=== PATIENT | male | born 1955 | race African-American/Black ===

== ENCOUNTER 2018-09-23 12:53 | Inpatient (IN) ==
[2018-09-23] MEDS ORDERED: ASPIRIN PR ONE (13:06)
[2018-09-23] MEDS ORDERED: ASPIRIN PO ONE (13:06)
[2018-09-23 13:35] LABS: ESTIMATED GFR > 60
[2018-09-23 13:40] LABS: AGAP 13; ALB/GLOB RATIO 1.3; ALBUMIN 3.5 g/dL (3.5-5.0); ALKALINE PHOSPHATASE 95 U/L (32-122); BUN 13 mg/dL (8-22); CALCIUM 8.4 mg/dL (8.8-10.2); CHLORIDE 87 mmol/L (98-107); CK PROFILE 185 U/L (24-204); COSMO 248; CREATININE 0.7 mg/dL (0.7-1.2); GLUCOSE 130 mg/dL (70-104); GOT 25 U/L (10-34); GPT 14 U/L (10-44); SODIUM 122 mmol/L (136-145); TCO2 22 mmol/L (25-35); TOTAL PROTEIN 6.2 g/dL (6.3-8.3)
[2018-09-23 13:46] LABS: BASO# 0.02 X1000 (0.0-0.2); BASO% 0.3 % (0.0-0.8); EOS# 0.03 X1000 (0.0-0.7); EOS% 0.4 % (0.0-10.0); HEMATOCRIT 18.3 % (42.0-52.0); HEMOGLOBIN 5.8 g/dL (14.0-18.0); LYMPH# 1.34 X1000 (1.2-3.4); LYMPH% 18.2 % (20.5-51.1); MCHC 31.7 g/dL (33-37); MCV 69.3 FL (81-99); MONO# 0.85 X1000 (0.11-0.59); MONO% 11.5 % (1.7-9.3); MPV 9.1 FL (7.4-10.4); NEUT# 5.13 X1000 (1.4-6.5); NEUT% 69.6 % (42.2-75.2); PLT 209 X1000 (130-400); RBC 2.64 XMIL (4.7-6.1); RDW 15.6 % (11.5-14.5); WBC 7.37 X1000 (4.8-10.8)
--- NOTE | 2018-09-23 13:47 | Diag Imaging Result Doc PS360 ---
EXAM: CHEST-2 VIEWS 09/23/2018 HISTORY: SOB TECHNIQUE: PA and lateral chest COMMENT: There are emphysematous changes in the upper lung zones and irregular opacity is present in the right apex partially obscured by the first rib and clavicle. The heart size and pulmonary vascularity are within normal limits. There is a granuloma in the right middle lobe. There are calcified subcarinal nodes. There is blunting of the left posterior costophrenic sulcus. This may be due to fluid or fibrosis. IMPRESSION: COPD. Questionable left pleural effusion. Opacity in the right apex which may be due to fibrosis. Comparison with previous studies is recommended. Electronically signed by Xander Marks 09/23/2018 1:45 PM
[2018-09-23 13:49] LABS: INR 1.17; PROTIME 15.1 Seconds (11.0-16.0)
[2018-09-23 13:50] LABS: PTT 27.9 Seconds (22.3-41.8)
--- NOTE | 2018-09-23 13:56 | EKG Report ---
Test Performed on : 09/23/2018 1:06:48 PM Test Reason : SOB Blood Pressure : / mmHG Vent. Rate : 099 BPM Atrial Rate : 099 BPM P-R Int : 104 ms QRS Dur : 112 ms QT Int : 342 ms P-R-T Axes : 073 065 063 degrees QTc Int : 438 ms Sinus rhythm. with short CO with premature atrial complexes. with aberrant conduction. Possible Left atrial enlargement Borderline ECG No previous ECGs available Unconfirmed Result
[2018-09-23] MEDS ORDERED: NS 1,000 ML IV ONE (14:18)
[2018-09-23] MEDS ORDERED: NS 500 ML IV ONE (14:19)
[2018-09-23] MEDS ORDERED: NEXIUM IV ONE (14:31)
[2018-09-23] MEDS ORDERED: SODIUM CHLORIDE 0.9% INJ ONE (14:31)
--- NOTE | 2018-09-23 14:33 | PROVIDER DOCUMENTATION ---
HPI-General Adult - General Chief Complaint: Shortness of Breath Stated Complaint: SOB Time Seen by Provider: 09/23/18 14:12 Source: patient - History of Present Illness -Gen Adult Nature of Presenting Problems: Pt. is 63 yom that presents with c/o SOB and leg cramps for three days. He reports his stool has been black. He denies any other complaints. He reports he is a smoker. Location of Pain/Injury: reports: lower extremity (bilateral). denies: none, head, face, mouth, neck, chest, upper extremity, hand(s), abdomen, back, pelvis, genitalia, feet, upper body, lower body, generalized, other Pain Radiation: reports: no radiation. denies: arm(s), back, buttocks, chest, epigastric, feet, groin, jaw, flank (L), legs (lower), LLQ, LUQ, neck, tia umbilical, flank (R), RLQ, RUQ, shoulder(s), scapula, scrotal, sternal notch, suprapubic, legs (upper), urethral, vaginal, other Quality of Pain: reports: cramping. denies: burning, indigestion, sharp, throbbing, tightness Severity: reports: mild. denies: moderate, severe Onset/Duration: reports: gradual, 3 days ago Timing: reports: still present. denies: improving, intermittent, getting worse Context/Activities at Onset: reports: none. denies: light activity, moderate activity, vigorous activity, recent emotional stress, recent physical stress, recent trauma history, possible bad food, cold exposure, eating, out of country travel, rest, sleep, sexual activity, other Modifying Factors: improves with: nothing Associated Symptoms: reports: muscle aches, shortness of breath. denies: denies symptoms, anxiety, arm pain, back/neck pain, chest pain, constipation, cough, diaphoresis, diarrhea, dizziness, EENT symptoms, fatigue, fever/chills, genitourinary problems, headaches, heartburn, joint pain, loss of appetite, malaise, sinus congestion/drainage, nausea, rash, seizure, sensory/motor loss, pain with inspiration, swelling/mass in abdomen, syncope, vomiting, weakness, trouble walking, other Similar Symptoms Previously?: Yes Recently seen or treated by another doctor?: No Review of Systems - Adult - REVIEW OF SYSTEMS - ADULT Constitutional: reports: no symptoms reported Eyes: reports: no symptoms reported Ears, Nose, Mouth & Throat: reports: no symptoms reported Cardiovascular: reports: no symptoms reported Respiratory: reports: see HPI, dyspnea on exertion, shortness of breath. denies: cough, hemoptysis, pleurisy Gastrointestinal: reports: see HPI, rectal bleeding. denies: hematemesis, constipation, frequent heartburn, vomiting Genitourinary: reports: no symptoms reported Musculoskeletal: reports: see HPI, frequent leg cramps. denies: bone pain, joint swelling, muscle aches, neck pain Integumentary: reports: no symptoms reported Neurological: reports: no symptoms reported Psychiatric: reports: no symptoms reported Past History - Adult - PAST MEDICAL HISTORY-ADULT Review of Records: reports: Old Records Reviewed, Nursing Assessment Review, Medications Reviewed, Social history reviewed & non-contributory. - IMMUNIZATION STATUS Childhood Immunizations: See Nurse Assessment Flu Vaccine: See Nurse Assessment - FAMILY HISTORY Family History: reviewed, not pertinent - SOCIAL HISTORY Smoking: cigarettes, greater than 1 pack/day Provider spent 3-5 mins advising pt. on dangers of tobacco.: Discussed manners to quit use, and f/u contacts for add'l counseling. Physical Exam-General - PHYSICAL EXAM-ADULT Initial Vital Signs Reviewed: Yes - CONSTITUTIONAL General Appearance: alert, mild distress, thin. negative: anxious, obtunded, c ombative - EYES Eyes: PERRL/EOMI, pink conjunctivae - HEAD, EARS, NOSE, MOUTH & THROAT HENMT: normocephalic/atraumatic, moist mucous membranes. negative: pharyngeal erythema, frontal tenderness, maxillary tenderness - NECK Neck: non-tender, supple, normal inspection - RESPIRATORY Respiratory: lungs clear, normal breath sounds. negative: rales, rhonchi, stridor - CARDIOVASCULAR Cardiovascular: regular rate, rhythm, no edema, tachycardia - GASTROINTESTINAL (ABDOMEN) Abdominal Exam: normal bowel sounds, non tender, soft. negative: rebound, tenderness, hernia, mass - LYMPHATIC Lymphatic: no adenopathy. negative: axilla node tender, cervical node tenderness - MUSCULOSKELETAL Back Exam: normal inspection, no CVA tenderness, no vertebral tenderness Extremity: normal range of motion, non-tender, normal inspection. negative: deformity, erythema, inflammation Peripheral Pulses: radial (R): 2+, radial (L): 2+ - SKIN Integumentary: normal color, normal turgor, warm/dry, pallor (Gums are pale). negative: cyanosis, erythema, swelling, warm - NEUROLOGIC Neurologic: grossly normal, no motor/sensory deficits - PSYCHIATRIC Psych/Mental Status: normal mood/affect, normal thought content, normal thought process, oriented x 3. negative: anxious, paranoid, tearful Progress - PLAN OF CARE/RESULTS Progress/Plan/Lab Results: Vital Signs - 8 hr 09/23/18 13:00 Temperature 97.8 F Pulse Rate 102 H Respiratory Rate 20 Blood Pressure 130/62 O2 Sat by Pulse Oximetry 98 Laboratory Results - last 24 hr 09/23/18 09/23/18 09/23/18 13:09 13:09 13:09 WBC 7.37 RBC 2.64 L Hgb 5.8 L* Hct 18.3 L MCV 69.3 L MCH 22.0 L MCHC 31.7 L RDW Std Deviation 15.6 H Plt Count 209 MPV 9.1 Immature Gran % (Auto) 0.0 Neut % (Auto) 69.6 Lymph % (Auto) 18.2 L [place] % (Auto) 11.5 H Eos % (Auto) 0.4 Baso % (Auto) 0.3 Immature Gran # (Auto) 0.00 Neut # (Auto) 5.13 Lymph # (Auto) 1.34 [place] # (Auto) 0.85 H Eos # (Auto) 0.03 Baso # (Auto) 0.02 PT INR PTT (Actin FS) Sodium 122 L Potassium 4.0 Chloride 87 L Carbon Dioxide 22 L Anion Gap 13 BUN 13 Creatinine 0.7 Estimated GFR/1.73 m2 > 60 BUN/Creatinine Ratio 19 Glucose 130 H Calculated Osmolality 248 Calcium 8.4 L Total Bilirubin 0.30 AST 25 ALT 14 Alkaline Phosphatase 95 Creatine Kinase 185 Troponin T Ixi-I-Epvxfttqmpz Pept 439 H Total Protein 6.2 L Albumin 3.5 Globulin 2.7 Albumin/Globulin Ratio 1.3 09/23/18 09/23/18 13:09 13:09 WBC RBC Hgb Hct MCV MCH MCHC RDW Std Deviation Plt Count MPV Immature Gran % (Auto) Neut % (Auto) Lymph % (Auto) [place] % (Auto) Eos % (Auto) Baso % (Auto) Immature Gran # (Auto) Neut # (Auto) Lymph # (Auto) [place] # (Auto) Eos # (Auto) Baso # (Auto) PT 15.1 INR 1.17 PTT (Actin FS) 27.9 Sodium Potassium Chloride Carbon Dioxide Anion Gap BUN Creatinine Estimated GFR/1.73 m2 BUN/Creatinine Ratio Glucose Calculated Osmolality Calcium Total Bilirubin AST ALT Alkaline Phosphatase Creatine Kinase Troponin T < 0.010 Rbb-H-Ptsvuxugybc Pept Total Protein Albumin Globulin Albumin/Globulin Ratio Orders Category Date Time Status Cardiac Monitoring DIRECTED Care 09/23/18 13:06 Active Oxygen Therapy- ED Nursing DIRECTED Care 09/23/18 13:06 Active Saline Loc NOW Care 09/23/18 13:06 Active Transfuse .Give-Transfuse Care 09/23/18 14:19 Active CHEST-2 VIEWS [RAD] Stat Exams 09/23/18 13:06 Completed CBC WITH ELECTRONIC DIFF [HEME] Stat Lab 09/23/18 13:09 Completed CK PROFILE [SP CHEM] Stat Lab 09/23/18 13:09 Completed COMPREHENSIVE METABOLIC PANEL [CHEM] Stat Lab 09/23/18 13:09 Completed LRPC (RED CELLS) [BBK] Stat Lab 09/23/18 14:22 Ordered OCCULT BLOOD SCREENING [STOOL] Stat Lab 09/23/18 14:22 Ordered PRO B-NATRIURETIC PEPTIDE Stat Lab 09/23/18 13:09 Completed PROTIME WITH INR [COAG] Stat Lab 09/23/18 13:09 Completed PTT [COAG] Stat Lab 09/23/18 13:09 Completed TROPONIN T Stat Lab 09/23/18 13:09 Completed TYPE & SCREEN [BBK] Stat Lab 09/23/18 14:22 Ordered 0.9% Sodium Chloride Inj [Ns] 1,000 ml Med 09/23/18 14:18 Active IV 125 mls/hr 0.9% Sodium Chloride Inj [Ns] 500 ml Med 09/23/18 14:19 Discontinued IV As Directed mls/hr Aspirin Med 09/23/18 13:06 Discontinued 300 mg [place] NOW ONE Aspirin Med 09/23/18 13:06 Discontinued 325 mg PO NOW ONE CP/SOB/Palp >45 yrs of Age Stat Oth 09/23/18 13:06 Ordered EKG [EKG] Stat Ther 09/23/18 13:06 Draft Laboratory Tests 09/23/18 09/23/18 09/23/18 13:09 13:09 13:09 WBC 7.37 RBC 2.64 L Hgb 5.8 L* Hct 18.3 L MCV 69.3 L MCH 22.0 L MCHC 31.7 L RDW Std Deviation 15.6 H Plt Count 209 MPV 9.1 Immature Gran % (Auto) 0.0 Neut % (Auto) 69.6 Lymph % (Auto) 18.2 L [place] % (Auto) 11.5 H Eos % (Auto) 0.4 Baso % (Auto) 0.3 Immature Gran # (Auto) 0.00 Neut # (Auto) 5.13 Lymph # (Auto) 1.34 [place] # (Auto) 0.85 H Eos # (Auto) 0.03 Baso # (Auto) 0.02 PT INR PTT (Actin FS) Sodium 122 L Potassium 4.0 Chloride 87 L Carbon Dioxide 22 L Anion Gap 13 BUN 13 Creatinine 0.7 Estimated GFR/1.73 m2 > 60 BUN/Creatinine Ratio 19 Glucose 130 H Calculated Osmolality 248 Calcium 8.4 L Total Bilirubin 0.30 AST 25 ALT 14 Alkaline Phosphatase 95 Creatine Kinase 185 Troponin T Aua-O-Lmzhohyglza Pept 439 H Total Protein 6.2 L Albumin 3.5 Globulin 2.7 Albumin/Globulin Ratio 1.3 09/23/18 09/23/18 13:09 13:09 WBC RBC Hgb Hct MCV MCH MCHC RDW Std Deviation Plt Count MPV Immature Gran % (Auto) Neut % (Auto) Lymph % (Auto) [place] % (Auto) Eos % (Auto) Baso % (Auto) Immature Gran # (Auto) Neut # (Auto) Lymph # (Auto) [place] # (Auto) Eos # (Auto) Baso # (Auto) PT 15.1 INR 1.17 PTT (Actin FS) 27.9 Sodium Potassium Chloride Carbon Dioxide Anion Gap BUN Creatinine Estimated GFR/1.73 m2 BUN/Creatinine Ratio Glucose Calculated Osmolality Calcium Total Bilirubin AST ALT Alkaline Phosphatase Creatine Kinase Troponin T < 0.010 Vqx-H-Lwzpouykefv Pept Total Protein Albumin Globulin Albumin/Globulin Ratio Discussed results and plan of care with patient. Patient agrees with plan and verbalizes understanding. Result Diagrams: 09/23/18 13:09 09/23/18 13:09 - XRAY 1 XRAY Study: Chest ([facility] - [address], [address], [place] [id number] [facility] - [address] [facility] [place] [address] Department of Imaging Patient: DEANA SILVA Date: 09/23/18#: [id number] : 1955DM Status: PRE ERAcct#: [id number] Age/Sex: 63/MRoom/Bed: Loc: ED Ordering Physician: Santosh Rivers MD Family Physician: None,PCP Reason for Procedure: SOB ___ Signed EXAM: CHEST-2 VIEWS 09/23/2018 HISTORY: SOB TECHNIQUE: PA and lateral chest COMMENT: There are emphysematous changes in the upper lung zones and irregular opacity is present in the right apex partially obscured by the first rib and clavicle. The heart size and pulmonary vascularity are within normal limits. There is a granuloma in the right middle lobe. There are calcified subcarinal nodes. There is blunting of the left posterior costophrenic sulcus. This may be due to fluid or fibrosis. IMPRESSION: COPD. Questionable left pleural effusion. Opacity in the right apex which may be due to fibrosis. Comparison with previous studies is recommended. Electronically signed by Xander Marks 09/23/2018 1:45 PM 09/23/18 1345 Interpreting Physician: Xander Marks MD Dictated Date/Time: 09/23/18 1344 cc: Santosh Rivers MD; None,PCP) XRAY Interpretation: See note - CONSULTS/PCP/HOSPITALIST Notification #1 *Consult/PCP/Hospitalist*: Dr. Casas Time Discussed: 14:29 Reason/Comments: Consult Consult Disposition: other (Will see patient when admitted) #2 Consult: Yvette Mann Time Discussed: 14:29 Reason/Comments: Admission Consult Disposition: Will see in ED, Admit Departure - Departure Date of Disposition Decision: 09/23/18 Time of Disposition Decision: 14:29 DIAGNOSIS: Hyponatremia, Hyperglycemia GI bleed Qualifiers: GI bleed type/associated pathology: unspecified gastrointestinal hemorrhage type Qualified Code(s): K92.2 - Gastrointestinal hemorrhage, unspecified Disposition: ADMITTED INPATIENT 09 Certified Medical Emergency: Emergent Condition: Serious Referrals and Follow-Ups: None,PCP [Primary Care Provider] - - Critical Care Note This patient required my direct & personal management of CC.: Yes Total Time (mins): 35 Critical Care Statement: This patient required my direct personal management to treat or rule out processes, the absence of which, could potentiallly result in sudden, clinically significant life or limb threatening deterioration. Attestation - Physician/ TANNER Attestation Patient care was provided by Advanced Practice Provider:: Yes Advanced Practice Provider:: Renetta Andrea Advanced Practice Provider documentation review:: The Mid-level provider documentation, treatment plan and medical decision making was reviewed by the physician who agrees with all treatment and medical decision making by the P. The physician spent face to face time with patient:: No Advanced Practice Provider documentation review:: Supervising physician onsite and consulted in the evaluation and care of this patient. The physician did not have a face to face encounter with the patient.
[2018-09-23] MEDS ORDERED: M.V.I.-12 10 ML, FOLIC ACID 1 MG, MAGNESIUM SULFATE 1 GM, THIAMINE 100 MG in NS 1,000 ML IV ONE (15:38)
[2018-09-23] MEDS ORDERED: ROBAXIN PO PRN (15:38)
[2018-09-23] MEDS ORDERED: ATARAX PO PRN (15:38)
[2018-09-23] MEDS ORDERED: BENTYL PO PRN (15:38)
[2018-09-23] MEDS ORDERED: SODIUM CHLORIDE 0.9% INJ SCH (15:38)
--- NOTE | 2018-09-23 15:45 | PROGRESS NOTE ---
DATE: 09/23/2018 ADDENDUM REPORT Note that he also has hyponatremia, appears to be in the hypovolemic, hyponatremic category so we will give him normal saline, and we will follow his electrolytes. I think we will check a random urine for sodium osmolality and creatinine. cc: Emre Mann MD
--- NOTE | 2018-09-23 15:45 | HISTORY AND PHYSICAL ---
HISTORY OF PRESENT ILLNESS: He has noticed some dark stools and then for the last several days, he has had a lot of leg cramping, especially in the upper legs, and he has felt very short of breath. No chest pain described. No fever or chills. No blood in his stool. No pleuritic pain or cough or sputum production. PAST MEDICAL HISTORY: Pretty unremarkable. He had a snake bite when he was [age] years old, apparently on his forehead. I think he has had trouble with dark stools before. PAST SURGICAL HISTORY: He has never had any surgery. ALLERGIES: He is not allergic to anything. FAMILY HISTORY: Did not bring up any issues or family medical problems. REVIEW OF SYSTEMS: He feels like maybe he has lost some weight, but he is not sure. He has taken ibuprofen every once in awhile on occasion, nothing regular. No aspirin regular. No Goody's powder. He does drink greater than a six-pack probably every day. No illicit drugs. He does smoke and has done that for awhile. No chest pain or tachy palpitations. No shortness of breath until the last couple of days. He has dyspnea with exertion. Musculoskeletal And Neurologic: A lot of muscle cramps but nothing focal. Endocrinologic/hematologic: No significant history. LABORATORY DATA: White blood cell count 7370, hematocrit is 18, hemoglobin 5.8 with an MCV of 69, platelet count 209,000. Sodium 122, potassium 4.0, chloride 87, bicarb 22, BUN 13, creatinine 0.7, blood sugar 130, calcium 8.4. Transaminases normal. Troponin less than 0.01. CK was 185. Albumin 3.5. ProTime 15.1, INR 1.17, PTT is 27. His stool for occult blood was positive. His chest x-ray, COPD, questionable left pleural effusion, opacity in the right apex which may be due to fibrosis. ASSESSMENT AND PLAN: 1. Microcytic anemia, suspect blood-loss anemia. He is describing dark stools. We will put him on proton pump inhibitor high-dose. We will give him Nexium 40 mg IV twice a day. We will give him some normal saline and run it at 85 mL an hour, and we will give him 2 units of packed red blood cells and type and cross for [address] Josue was consulted. We may need to explore his upper GI tract, and I think we will go ahead and start some Carafate liquid 1 g p.o. 4 times a day. We will put him on a full liquid diet for right now until he gets his EGD or until Dr. Gould decides what he wants to do with that. We will check iron studies, serum iron, ferritin, total iron binding capacity. We will check a B12 and folate. We will check T4 and TSH. We will check an a.m. cortisol level as well. 2. Looks like he has chronic obstructive pulmonary disease. His x-ray showed questionable left pleural effusion, opacity in the right apex which could be fibrosis. We will follow up with a PA and lateral chest x-ray tomorrow, but he may need to get a CT of his chest as well. He is describing some weight loss, and he has a long history of smoking. 3. Poor dentition. 4. He, by history, says he has had some weight loss. cc: Emre Mann MD
[2018-09-23] MEDS ORDERED: XYLOCAINE-MPF 2% ONE (15:50)
[2018-09-23] MEDS ORDERED: ROBINUL ONE (15:50)
[2018-09-23] MEDS ORDERED: DIPRIVAN 1% ONE (15:50)
[2018-09-23] MEDS ORDERED: ZOFRAN IV PRN (15:57)
[2018-09-23 16:16] LABS: ESTIMATED GFR > 60
[2018-09-23 16:20] LABS: AGAP 15; BUN 13 mg/dL (8-22); CHLORIDE 87 mmol/L (98-107); COSMO 249; CREATININE 0.7 mg/dL (0.7-1.2); GLUCOSE 124 mg/dL (70-104); SODIUM 123 mmol/L (136-145); TCO2 21 mmol/L (25-35)
[2018-09-23 16:21] LABS: CALCIUM 8.5 mg/dL (8.8-10.2); MAGNESIUM 1.6 mg/dL (1.5-2.7)
[2018-09-23] MEDS ORDERED: QUELICIN (DOSE) ONE (16:30)
[2018-09-23 16:31] LABS: FREE T4 0.93 ng/dL (0.93-1.70)
[2018-09-23] MEDS ORDERED: DECADRON ONE ×2 (16:32→16:56)
[2018-09-23] MEDS ORDERED: ZOFRAN ONE (16:32)
--- NOTE | 2018-09-23 17:06 | ENDOSCOPY OPERATIVE NOTE ---
[facility] ENDOSCOPY OPERATIVE NOTE , PATIENT: Dar Hickey ADMISSION DATE: 09/23/2018 MR#: [id number] : 1955 [facility] [id number] EGD PROCEDURE REPORT PROCEDURE DATE: 09/23/2018 SURGEON: Porfirio Josue MD STATUS: inpatient STAFFING MANAGER: Ruby Gonzalez and Bev Casas PREOPERATIVE DIAGNOSIS: The patient is a 63 yr old male here for an EGD due to melena and acute post hemorrhagic anemia. PROCEDURE PERFORMED: EGD w/ biopsy MEDICATIONS: Per Anesthesia TOPICAL ANESTHETIC: none CONSENT: The patient understands the risks and benefits of the procedure and understands that these r isks include, but are not limited to: sedation, allergic reaction, infection, perforation and/or bleeding. Alternative means of evaluation and treatment include, among others: physical exam, x-rays, and/or surgical intervention. The patient elects to proceed with this endoscopic procedure. HISORY AND PHYSICAL: 09/23/2018 function. Hand hygiene and appropriate measures for infection prevention was taken. After the risks, benefits and alternatives of the procedure were thoroughly explained, Informed consent was verified, confirmed and timeout was successfully executed by the treatment team. The patient was anesthetized with topical anesthesia and the [id number] ([id number]) endoscope was introduced through the mouth and advanced to the second portion of the duoden um. Retroflexion was performed in the stomach and revealed no abnormalities. The gastroscope was then slowly withdraw n and removed. ESOPHAGUS: The mucosa of the esophagus appeared normal. STOMACH: The mucosa of the stomach appeared normal. DUODENUM: Moderate duodenal inflammation was found in the duodenal bulb and 2nd part duodenum. Multi ple biopsies were performed using cold forceps. Sample sent for histology. PERTINENT NEGATIVES: There was no evidence of ulcer and tumor. SPECIMENS REMOVED: No ADVERSE EVENTS: There were no complications. POSTOPERATIVE DIAGNOSIS: 1. The mucosa of the esophagus appeared normal 2. The mucosa of the stomach appeared normal 3. Duodenal inflammation was found in the duodenal bulb and 2nd part duodenum; multiple biopsies wer e performed RECOMMENDATIONS: 1. Follow-up biopsy results in 2 weeks 2. Avoid non-steroid anti-inflammatory drugs 3. Recheck H/H after second unit of PRBC. Full liquid diet for now. 4. Return to floor when standard parameters are met REPEAT EXAM: Porfirio Josue MD eSigned: Porfirio Josue MD 09/23/2018 5:05 PM cc: PATIENT NAME: Dar Hickey MR#: [id number]
[2018-09-23] MEDS ORDERED: NS 1,000 ML ONE (17:25)
--- NOTE | 2018-09-23 17:51 | ED EKG INTERP ---
This chart was entered by Magali Mackay Scribe, acting as scribe for Santosh Rivers MD. EKG Interpretation - EKG Time of EKG reading by physician:: 13:06 EKG Read and Signed by:: Santosh Rivers EKG Interpretation (*Must complete 3 of following elements*): Abnormal (rhythm - sinus rhythm with short OR with premature atrial complexes with aberrant conduction) Rate: 99 [place]: normal OR Interval: normal Comments: possible left atrial enlargement Attestation - Physician/ TANNER Attestation Patient care was provided by Advanced Practice Provider:: Yes Advanced Practice Provider:: Renetta Andrea Advanced Practice Provider documentation review:: The Mid-level provider documentation, treatment plan and medical decision making was reviewed by the physician who agrees with all treatment and medical decision making by the MLP. The physician spent face to face time with patient:: No Advanced Practice Provider documentation review:: Supervising physician onsite and consulted in the evaluation and care of this patient. The physician did not have a face to face encounter with the patient. This chart was documented by the indicated scribe, (Magali Mackay Scribe) and accurately reflects the services I performed and decisions made by me, Santosh Rivers MD, as attested by the provider's signature.
[2018-09-23] MEDS: NEXIUM 80 MG in NS 90 ML IV SCH (19:03)
[2018-09-23] MEDS: CARAFATE LIQUID PO SCH (20:24)
[2018-09-23] MEDS: LIBRIUM PO SCH (20:24)
[2018-09-24] MEDS: CARAFATE LIQUID PO SCH ×4 (02:01→20:29)
[2018-09-24] MEDS: LIBRIUM PO SCH ×3 (03:53→19:25)
[2018-09-24] MEDS: NEXIUM 80 MG in NS 90 ML IV SCH ×2 (05:57→13:49)
[2018-09-24 06:13] LABS: HEMATOCRIT 30.9 % (42.0-52.0); HEMOGLOBIN 10.2 g/dL (14.0-18.0); LYMPH# 0.33 X1000 (1.2-3.4); LYMPH% 7.4 % (20.5-51.1); MCH 25.1 PG (27-31); MCV 76.1 FL (81-99); MONO% 2.2 % (1.7-9.3); MPV 10.4 FL (7.4-10.4); NEUT# 4.02 X1000 (1.4-6.5); NEUT% 90.4 % (42.2-75.2); PLT 176 X1000 (130-400); RBC 4.06 XMIL (4.7-6.1); RDW 19.7 % (11.5-14.5); WBC 4.45 X1000 (4.8-10.8)
[2018-09-24 06:39] LABS: AGAP 10; ALB/GLOB RATIO 1.2; ALBUMIN 3.3 g/dL (3.5-5.0); ALKALINE PHOSPHATASE 90 U/L (32-122); BUN 9 mg/dL (8-22); CALCIUM 7.8 mg/dL (8.8-10.2); CHLORIDE 98 mmol/L (98-107); COSMO 267; CREATININE 0.8 mg/dL (0.7-1.2); ESTIMATED GFR > 60; GLUCOSE 158 mg/dL (70-104); GOT 21 U/L (10-34); GPT 13 U/L (10-44); POTASSIUM 4.8 mmol/L (3.5-5.1); SODIUM 132 mmol/L (136-145); TCO2 24 mmol/L (25-35); TOTAL IRON 43 ug/dL (53-167)
[2018-09-24 07:47] LABS: BANDS 2 % (0-1); HYPOCHROM 1+; LYMPHS 6 % (21-51); SEGS 92 % (42-75)
[2018-09-24 08:48] LABS: HEMOGLOBIN A1C 5.3 % (4.8-6.0)
--- NOTE | 2018-09-24 09:38 | PROGRESS NOTE ---
DATE: 09/24/2018 SUBJECTIVE: The patient is resting comfortably in bed. He denies having any nausea, vomiting, or abdominal pain. No acute events noted overnight. OBJECTIVE: Vital Signs: Temperature 98.7 degrees, blood pressure 134/87, heart rate 95, respirations 19, and O2 saturation is 100% on room air. General: This is a chronically ill- appearing elderly male lying in bed in no acute distress. Heart: S1, S2. Normal. Tachycardic. Lungs: Equal air entry bilaterally. No wheezing. No rales. Abdomen: Positive bowel sounds. Soft, nontender, and nondistended. Extremities: No edema. No cyanosis. Neurologic: The patient is alert and oriented x4. LABORATORY: White blood cell count 4.4, hemoglobin 10, hematocrit 30, platelets 176,000, sodium 132, potassium 4.8, chloride 98, CO2 24, BUN 9, creatinine 0.8 and glucose 158. ASSESSMENT AND PLAN: 1. Gastrointestinal bleed. The EGD yesterday showed inflammation in the duodenum. The patient had multiple biopsies done. We will continue on the proton pump inhibitor therapy. The patient has been started on a full liquid diet, and will advance as tolerated. 2. Alcohol abuse. The patient has been counseled about alcohol cessation. We will continue on Librium, and monitor the patient closely for withdrawal. 3. Anemia of acute blood loss. The patient's hemoglobin and hematocrit have improved. He did receive a blood transfusion yesterday. We will continue to monitor the hemoglobin and hematocrit closely. 4. Hyponatremia. Improved. We will continue to monitor the sodium closely. 5. Possible emphysema. The chest x-ray done on admission reveals an irregular opacity in the right apex. We will follow this up by doing a chest CT. 6. Deep vein thrombosis prophylaxis. We will start the patient on SCD's. 7. Disposition. We will transfer the patient to the medical floor and consult physical therapy. cc: Corinne Baker MD
[2018-09-24] MEDS: DUONEB (A & A) INH SCH ×3 (11:00→21:56)
--- NOTE | 2018-09-24 11:51 | Diag Imaging Result Doc PS360 ---
EXAM: CT THORAX W/O CONTRAST INDICATION: lung nodule at apex TECHNIQUE: This exam was performed using automated exposure control, adjustment of mA or kV according to patient size, and/or use of iterative reconstruction technique. COMPARISON: None. FINDINGS: There is moderate to advanced pulmonary emphysema. At the right lung apex, there is focal fibrosis with associated dense calcification corresponding to the opacity seen on a recent chest radiograph. There is trace pleural fluid at both lung bases and there is minimal bibasilar atelectasis. There is a calcified granuloma in the right middle lobe. There are densely calcified right hilar and mediastinal lymph nodes indicating prior granulomatous disease. There is no evidence of significant lymphadenopathy, otherwise. There are coronary artery calcifications. There is no cardiomegaly. Limited views of the upper abdomen are essentially unremarkable. There is no evidence of acute osseous abnormality. IMPRESSION: 1.Moderate to advanced pulmonary emphysema. 2.Focal fibrosis with coarse calcification corresponding to the opacity at the right lung apex seen on the recent chest radiograph. 3.Trace pleural fluid collections and minimal bibasilar atelectasis. Electronically signed by Felix Harrison 09/24/2018 11:49 AM
[2018-09-24] MEDS ORDERED: GOLYTELY PO ONE (14:00)
--- NOTE | 2018-09-24 14:41 | GASTROENTEROLOGY PROGRESS NOTE ---
DATE: 09/24/2018 SUBJECTIVE: The patient denies significant complaints today. He had an EGD on 09/23/2018. Indications were melena and anemia. Findings showed normal esophagus, normal stomach, moderate duodenal inflammation in the duodenal bulb and 2nd part of the duodenum. Pathology is pending. Hemoglobin and hematocrit have improved today, 10.2, 30.9. Patient has received 2 units of packed red blood cells since admission. OBJECTIVE: Vital Signs: Temperature 98.7 degrees, pulse 89, respirations 24, blood pressure 132/76. General: Patient is awake and alert, in no acute distress. LABORATORY: Hematology: WBC 4.45, hemoglobin 10.2, hematocrit 30.9, MCV 76.1, platelets 176,000. Chemistry: Sodium 132, potassium 4.8, chloride 98, CO2 of 24, BUN 9, creatinine 0.8, glucose 158, calcium 7.8. Iron 43. Total bilirubin 0.90, AST 21, ALT 13, alkaline phosphatase 98. ASSESSMENT AND PLAN: 1. Recent gastrointestinal bleed. EGD done on 09/23/2018 showed inflammation in the duodenum, otherwise no evidence of active bleeding or ulcerations. 2. Alcohol abuse. The patient is receiving Librium and being monitored for possible alcohol withdrawal. 3. Anemia has improved after transfusion. PLAN: Continue PPI. Continue to monitor for further active bleeding. Continue to monitor hemoglobin and hematocrit and transfuse further packed red blood cells as needed. EGD did not show evidence of active GI bleeding. We will proceed with a colonoscopy tomorrow. Further plans will be made according to findings. I have discussed the procedure with the patient, along with benefits and risks, and he wishes to proceed. He states he has not had a colonoscopy in the past. Further plans will be made as needed. I have discussed this case with Dr. Josue. Dictated by CARITO Antonio for Porfirio Josue MD cc: CARITO Jansen MD
[2018-09-24] MEDS ORDERED: NEXIUM IV SCH (16:00)
[2018-09-24] MEDS ORDERED: PROTONIX IV SCH (18:00)
[2018-09-24] MEDS: PROTONIX IV SCH (20:31)
[2018-09-24] MEDS ORDERED: SODIUM CHLORIDE 0.9% INJ SCH (21:00)
[2018-09-25] MEDS: LIBRIUM PO SCH ×4 (00:12→23:47)
[2018-09-25] MEDS: CARAFATE LIQUID PO SCH ×4 (01:33→20:22)
[2018-09-25 07:02] LABS: HEMATOCRIT 27.1 % (42.0-52.0); HEMOGLOBIN 8.8 g/dL (14.0-18.0); MCH 25.8 PG (27-31); MCHC 32.5 g/dL (33-37); MCV 79.5 FL (81-99); MPV 9.7 FL (7.4-10.4); RBC 3.41 XMIL (4.7-6.1); RDW 19.5 % (11.5-14.5); WBC 12.49 X1000 (4.8-10.8)
[2018-09-25 07:25] LABS: AGAP 8; BUN 6 mg/dL (8-22); CALCIUM 8.4 mg/dL (8.8-10.2); CHLORIDE 100 mmol/L (98-107); COSMO 270; CREATININE 0.7 mg/dL (0.7-1.2); ESTIMATED GFR > 60; GLUCOSE 105 mg/dL (70-104); POTASSIUM 4.1 mmol/L (3.5-5.1); SODIUM 136 mmol/L (136-145); TCO2 28 mmol/L (25-35)
[2018-09-25] MEDS ORDERED: GOLYTELY PO ONE (07:45)
[2018-09-25] MEDS: PROTONIX IV SCH (08:45)
[2018-09-25] MEDS: DUONEB (A & A) INH SCH ×3 (09:43→21:21)
[2018-09-25] MEDS ORDERED: CORTROSYN IV ONE (09:49)
[2018-09-25 10:59] LABS: URINE SOURCE CLEAN CATCH
[2018-09-25 11:14] LABS: BILIRUBIN URINE NEGATIVE (NEGATIVE); BLOOD URINE NEGATIVE (NEGATIVE); COLOR STRAW; GLUCOSE URINE 200 mg/dL (NEGATIVE); KETONE URINE NEGATIVE (NEGATIVE); LEUKOCYTES URINE NEGATIVE (NEGATIVE); NITRITE URINE NEGATIVE (NEGATIVE); PH URINE 6.5; PROTEIN URINE NEGATIVE (NEGATIVE); SP GRAVITY URINE 1.006; TURBIDITY URINE CLEAR (CLEAR); UROBILINOGEN URINE NORMAL (NORMAL)
[2018-09-25 11:16] LABS: UR EPITHELIAL CELLS <10 /HPF (<10); URINE BACTERIA NEGATIVE /HPF; URINE RBC <10 /HPF (<10); URINE WBC <10 /HPF (<10)
[2018-09-25] MEDS ORDERED: DIPRIVAN 1% ONE (18:15)
--- NOTE | 2018-09-25 18:49 | ENDOSCOPY OPERATIVE NOTE ---
[facility] ENDOSCOPY OPERATIVE NOTE , PATIENT: Dar Hickey ADM DATE: 09/25/2018 MR #: [id number] : 1955 COLONOSCOPY PROCEDURE REPORT PROCEDURE DATE: 09/25/2018 SURGEON: Porfirio Josue MD STATUS: inpatient BUILDING ECONOMIST: Ruby Gonzalez and Bev Casas PREOPERATIVE DIAGNOSIS: The patient is a 63 yr old male here for a colonoscopy due to iron deficienc y anemia. PROCEDURE PERFORMED: Colonoscopy, diagnostic MEDICATIONS: Per Anesthesia PREP TYPE: GoLytely
--- NOTE | 2018-09-25 18:57 | PROGRESS NOTE ---
DATE: 09/25/2018 SUBJECTIVE: The patient is resting comfortably in bed. He is scheduled for a colonoscopy. OBJECTIVE: Vital Signs: Temperature 97.5 degrees, blood pressure 126/71, heart rate 104, respirations 18, O2 saturation is 100% on room air. General: This is a chronically ill- appearing, elderly male, lying in bed in no acute distress. Heart: S1, S2 normal. Tachycardic. Lungs: Coarse breath sounds bilaterally. Abdomen: Positive bowel sounds. Soft, nontender, nondistended. Extremities: No edema. No cyanosis. Neurologic: The patient is alert and oriented x4. LABORATORY: White blood cell count 12, hemoglobin 8.8, hematocrit 27, platelets 153,000. Sodium 136, potassium 4.1, chloride 100, CO2 of 28, BUN 6, creatinine 0.7, glucose 105. ASSESSMENT AND PLAN: 1. Gastrointestinal bleed. The patient is scheduled for a colonoscopy today. Further management as per GI. 2. Alcohol abuse. Continue on Librium. Will monitor the patient closely for signs of withdrawal. 3. Emphysema. Aware. The patient has been counseled about smoking cessation. 4. Hyponatremia. Resolved. 5. Anemia of acute blood loss. The patient's hemoglobin and hematocrit is a little bit lower today. We will continue to monitor closely. 6. Deep vein thrombosis prophylaxis. Continue with SCDs. cc: Corinne Baker MD
[2018-09-26] MEDS: CARAFATE LIQUID PO SCH ×2 (02:47→08:16)
[2018-09-26] MEDS ORDERED: PRILOSEC PO SCH (07:00)
[2018-09-26 07:01] LABS: BASO# 0.02 X1000 (0.0-0.2); BASO% 0.2 % (0.0-0.8); HEMATOCRIT 27.6 % (42.0-52.0); HEMOGLOBIN 8.7 g/dL (14.0-18.0); IMM GRAN# 0.03 X1000 (0.0-0.04); IMM GRAN% 0.3 % (0.0-0.5); LYMPH# 1.52 X1000 (1.2-3.4); LYMPH% 14.9 % (20.5-51.1); MCH 24.9 PG (27-31); MCHC 31.5 g/dL (33-37); MCV 78.9 FL (81-99); MONO# 0.83 X1000 (0.11-0.59); MONO% 8.1 % (1.7-9.3); MPV 9.7 FL (7.4-10.4); NEUT# 7.72 X1000 (1.4-6.5); NEUT% 75.5 % (42.2-75.2); PLT 150 X1000 (130-400); RDW 20.3 % (11.5-14.5); WBC 10.22 X1000 (4.8-10.8)
[2018-09-26 07:12] LABS: AGAP 6; ALB/GLOB RATIO 1.4; ALBUMIN 3.2 g/dL (3.5-5.0); ALKALINE PHOSPHATASE 76 U/L (32-122); BUN 5 mg/dL (8-22); CALCIUM 8.4 mg/dL (8.8-10.2); CHLORIDE 100 mmol/L (98-107); COSMO 268; CREATININE 0.7 mg/dL (0.7-1.2); ESTIMATED GFR > 60; GLUCOSE 102 mg/dL (70-104); GOT 17 U/L (10-34); GPT 12 U/L (10-44); POTASSIUM 3.9 mmol/L (3.5-5.1); SODIUM 135 mmol/L (136-145); TCO2 29 mmol/L (25-35); TOTAL BILIRUBIN 0.25 mg/dL (0.20-1.00); TOTAL PROTEIN 5.5 g/dL (6.3-8.3)
[2018-09-26] MEDS: LIBRIUM PO SCH (08:16)
[2018-09-26] MEDS: DUONEB (A & A) INH SCH (09:13)
[2018-09-26 12:22] VITALS: BP 128/71
--- NOTE | 2018-10-07 22:07 | DISCHARGE SUMMARY ---
ADMISSION DATE: 09/23/2018 DISCHARGE DATE: 09/26/2018 FINAL DISCHARGE DIAGNOSIS: 1. Gastrointestinal bleed. 2. Alcohol abuse. 3. Emphysema. 4. Hyponatremia. 5. Anemia of acute blood loss. CONSULTATIONS: GI consultation with Dr. Josue. PROCEDURES: 1. EGD performed on 09/23/2018 that revealed duodenal inflammation and multiple biopsies were taken. 2. Colonoscopy performed on 09/25/2018 that was normal. HOSPITAL COURSE: Mr. Hickey is a 63-year-old male with a history of alcohol abuse who presented to the ER with melena and severe iron deficiency anemia. On admission the patient was noted to have a hemoglobin of 5.8 and hematocrit of 18. The patient was admitted to the ICU and made NPO and started on a Protonix drip. GI was also consulted. The patient received a blood transfusion. The patient was taken for an EGD on 09/23/2018 which revealed duodenal inflammation and multiple biopsies were taken at that time. The patient's hemoglobin and hematocrit remain stable and the patient was then taken for colonoscopy on 09/25/2018 and it was noted to be normal. The patient was again counseled about the importance of smoking cessation and alcohol cessation. A CT of the chest was also done that revealed moderate to advanced pulmonary emphysema. The patient continued to improve clinically and was ultimately cleared for discharge home. DISCHARGE MEDICATIONS: Omeprazole 20 mg p.o. daily. DISCHARGE DIET: GI soft diet. ACTIVITY: As tolerated. FOLLOWUP INSTRUCTIONS: The patient has been advised to follow up with his primary care physician in 1 to 2 weeks. cc: Corinne Baker MD
== END 2018-09-26 15:04 | disposition home or self-care (01) | DRG 378 ==
LOC: ED 12:53 → SUATTDRO 17:50 → ICU 17:50 → 4N 09-24 14:23
PROVIDERS: ATTEND Internal Medicine

== ENCOUNTER 2018-11-05 09:10 | Inpatient (IN) ==
[2018-11-05] MEDS ORDERED: NS 1,000 ML IV ONE (09:36)
--- NOTE | 2018-11-05 09:40 | EKG Report ---
Test Performed on : 11/05/2018 09:17:28 AM Test Reason : CP Blood Pressure : / mmHG Vent. Rate : 105 BPM Atrial Rate : 105 BPM P-R Int : 122 ms QRS Dur : 122 ms QT Int : 364 ms P-R-T Axes : 055 037 014 degrees QTc Int : 481 ms Sinus tachycardia. with frequent premature ventricular complexes. Possible Left atrial enlargement Right bundle branch block Abnormal ECG When compared with ECG of 14-OCT-2018 09:56, (Unconfirmed) Right bundle branch block is now present Unconfirmed Result
--- NOTE | 2018-11-05 09:44 | PROVIDER DOCUMENTATION ---
HPI-General Adult - General Chief Complaint: Shortness of Breath Stated Complaint: SOB,EDEMA Time Seen by Provider: 11/05/18 09:19 Source: patient Allergies/Adverse Reactions: Patient Allergies Allergy/AdvReac Type Severity Reaction Status Date / Time No Known Allergies Allergy Verified 10/14/18 10:02 Home Medications: Home Medication List Medication Instructions Recorded Confirmed Last Taken Type Albuterol Sulfate [Albuterol 8.5 gm INHALATION Q4-6H PRN PRN #1 10/14/18 11/05/18 11/05/18 Rx Sulfate Hfa] hfa.aer.ad 2 puffs Fluticasone/Umeclidin/Vilanter 1 ea INHALATION DAILY #1 blst.w.dev 10/14/18 11/05/18 11/04/18 Rx [Trelegy Ellipta 100-62.5-25] 1 dose - History of Present Illness -Gen Adult Nature of Presenting Problems: he is a poor historian. Says he has had SOB, feet swelling since a 4 day hospitalization 6 weeks ago. Was placed on unk med, which says is taking. Says he has had black stool for 4 days, no N/V or abd pain. No CP, No palpitations, Old records reviewed. Was admitted fro GI beeld, anemia. Had EGD which showed duodenitis Review of Systems - Adult - REVIEW OF SYSTEMS - ADULT Constitutional: reports: see HPI Eyes: reports: no symptoms reported Ears, Nose, Mouth & Throat: reports: no symptoms reported Cardiovascular: reports: no symptoms reported Respiratory: reports: see HPI Gastrointestinal: reports: see HPI Genitourinary: reports: no symptoms reported Musculoskeletal: reports: no symptoms reported Integumentary: reports: no symptoms reported Neurological: reports: no symptoms reported Psychiatric: reports: no symptoms reported Endocrine: reports: no symptoms reported Hematologic/Lymphatic: reports: see HPI Allergic/Immunologic: reports: no symptoms reported Past History - Adult - PAST MEDICAL HISTORY-ADULT Review of Records: reports: Old Records Reviewed, Medications Reviewed Major Childhood Illnesses: reports: denies history Cardiovascular: reports: denies history Respiratory: reports: COPD Gastrointestinal: reports: GI bleed Genitourinary: reports: denies history Musculoskeletal: reports: denies history Neurological: reports: denies history Psychiatric: reports: denies history Endocrine/Immune: reports: denies history - PRIOR SURGERIES/PROCEDURES Surgical/Procedure History: reports: colonoscopy - IMMUNIZATION STATUS Childhood Immunizations: See Nurse Assessment Flu Vaccine: See Nurse Assessment - FAMILY HISTORY Family History: reviewed, not pertinent Physical Exam-General - PHYSICAL EXAM-ADULT Initial Vital Signs Reviewed: Yes - CONSTITUTIONAL General Appearance: appears well, alert, no apparent distress - EYES Eyes: PERRL/EOMI, pale conjunctivae - HEAD, EARS, NOSE, MOUTH & THROAT HENMT: normocephalic/atraumatic, moist mucous membranes, normal ENT inspection, pharynx normal - NECK Neck: full range of motion, supple, normal inspection - RESPIRATORY Respiratory: lungs clear, normal breath sounds, no pleuratic chest pain, no respiratory distress, no accessory muscle use - CARDIOVASCULAR Cardiovascular: irregularly irregular, other (split S2) - GASTROINTESTINAL (ABDOMEN) Abdominal Exam: normal bowel sounds, non tender, soft - MUSCULOSKELETAL Back Exam: normal inspection, no CVA tenderness, no vertebral tenderness Extremity: normal range of motion, non-tender, pedal edema (tr-1+ pretibial) - SKIN Integumentary: normal color, normal turgor, warm/dry - NEUROLOGIC Neurologic: internship coordinator II-XII nml as tested, grossly normal, no motor/sensory deficits - PSYCHIATRIC Psych/Mental Status: normal mood/affect, normal thought content, normal thought process, oriented x 3 Progress - PLAN OF CARE/RESULTS Progress/Plan/Lab Results: Vital Signs - 8 hr 11/05/18 09:11 Temperature 98.4 F Pulse Rate 68 Respiratory Rate 18 Blood Pressure 122/71 O2 Sat by Pulse Oximetry 96 Orders Category Date Time Status Nursing- Obtain EKG ONCE Care 11/05/18 09:35 Active CHEST-1 VIEW [RAD] Stat Exams 11/05/18 09:35 Ordered ALCOHOL BLOOD Stat Lab 11/05/18 09:35 Uncollected CBC WITH DIFF [HEME] Stat Lab 11/05/18 09:35 Uncollected COMPREHENSIVE METABOLIC PANEL [CHEM] Stat Lab 11/05/18 09:35 Uncollected TYPE & SCREEN [BBK] Stat Lab 11/05/18 09:35 Uncollected 0.9% Sodium Chloride Inj [Ns] 1,000 ml Med 11/05/18 09:36 Active IV 150 mls/hr EKG [EKG] Stat Ther 11/05/18 09:34 Ordered Result Diagrams: 11/05/18 09:45 11/05/18 09:45 - CONSULTS/PCP/HOSPITALIST Notification #1 *Consult/PCP/Hospitalist*: [place] Time Discussed: 10:35 Consult Disposition: Will see in ED, Admit Departure - Departure Date of Disposition Decision: 11/05/18 Time of Disposition Decision: 09:53 DIAGNOSIS: GI bleed Qualifiers: GI bleed type/associated pathology: gastroduodenitis Qualified Code(s): K29.91 - Gastroduodenitis, unspecified, with bleeding Anemia Qualifiers: Anemia type: unspecified type Qualified Code(s): D64.9 - Anemia, unspecified Disposition: ADMITTED INPATIENT 09 Certified Medical Emergency: Emergent Condition: Good Referrals and Follow-Ups: None,PCP [Primary Care Provider] - - Critical Care Note This patient required my direct & personal management of CC.: No Attestation - Physician/ TANNER Attestation Patient care was provided by Advanced Practice Provider:: No The physician spent face to face time with patient:: Yes Advanced Practice Provider documentation review:: Supervising physician onsite and consulted in the evaluation and care of this patient. The physician did have a face to face encounter with the patient.
--- NOTE | 2018-11-05 09:53 | Diag Imaging Result Doc PS360 ---
EXAM: CHEST-1 VIEW HISTORY: SOB TECHNIQUE: Portable chest COMPARISON: 10/14/2018 FINDINGS: The lungs are hyperexpanded. No cardiomegaly. No pulmonary edema. Pleural thickening versus tiny effusions. Increased density in the upper right lung shown to represent scarring on the CT from 09/24/2018. No pneumonia. IMPRESSION: No acute abnormality. Electronically signed by Sam Adorno 11/05/2018 9:50 AM
[2018-11-05] MEDS ORDERED: NS 500 ML IV ONE (10:21)
[2018-11-05 10:23] LABS: BASO# 0.04 X1000 (0.0-0.2); BASO% 0.3 % (0.0-0.8); EOS# 0.12 X1000 (0.0-0.7); EOS% 0.8 % (0.0-10.0); HEMATOCRIT 15.2 % (42.0-52.0); HEMOGLOBIN 4.4 g/dL (14.0-18.0); IMM GRAN# 0.07 X1000 (0.0-0.04); IMM GRAN% 0.5 % (0.0-0.5); LYMPH# 1.97 X1000 (1.2-3.4); LYMPH% 12.8 % (20.5-51.1); MCH 19.4 PG (27-31); MCHC 28.9 g/dL (33-37); MONO# 1.37 X1000 (0.11-0.59); MONO% 8.9 % (1.7-9.3); MPV 9.8 FL (7.4-10.4); NEUT# 11.82 X1000 (1.4-6.5); NEUT% 76.7 % (42.2-75.2); PLT 321 X1000 (130-400); RBC 2.27 XMIL (4.7-6.1); RDW 21.3 % (11.5-14.5); WBC 15.39 X1000 (4.8-10.8)
--- NOTE | 2018-11-05 10:36 | ED EKG INTERP ---
This chart was entered by Elana Thapa Scribe, acting as scribe for Kiko Savage MD. EKG Interpretation - EKG Time of EKG reading by physician:: 09:17 EKG Read and Signed by:: Kiko Savage EKG Interpretation (*Must complete 3 of following elements*): Abnormal Rate: 105 Rhythm: sinus tachycardia with freq pvc [place]: normal QRS: RBB VA Interval: normal ST Wave: normal Comments: possible left atrial enlargement Attestation - Physician/ TANNER Attestation Patient care was provided by Advanced Practice Provider:: No The physician spent face to face time with patient:: Yes Advanced Practice Provider documentation review:: Supervising physician onsite and consulted in the evaluation and care of this patient. The physician did have a face to face encounter with the patient. This chart was documented by the indicated scribe, (Elana Thapa Scribe) and accurately reflects the services I performed and decisions made by me, Kiko Savage MD, as attested by the provider's signature.
[2018-11-05 10:38] LABS: POTASSIUM 3.7 mmol/L (3.5-5.1); SODIUM 135 mmol/L (136-145)
[2018-11-05 10:39] LABS: AGAP 14; ALB/GLOB RATIO 1.5; ALBUMIN 3.5 g/dL (3.5-5.0); ALKALINE PHOSPHATASE 50 U/L (32-122); BUN 24 mg/dL (8-22); CALCIUM 7.7 mg/dL (8.8-10.2); CHLORIDE 98 mmol/L (98-107); COSMO 274; CREATININE 0.9 mg/dL (0.7-1.2); ESTIMATED GFR > 60; GLUCOSE 96 mg/dL (70-104); GOT 17 U/L (10-34); GPT 14 U/L (10-44); TCO2 23 mmol/L (25-35); TOTAL BILIRUBIN 0.35 mg/dL (0.20-1.00); TOTAL PROTEIN 5.8 g/dL (6.3-8.3)
[2018-11-05 11:00] LABS: ANISOCYTOSIS 2+; HYPOCHROM 3+; LYMPHS 12 % (21-51); MONO 6 % (1-9); POLYCHROM 1+; SEGS 82 % (42-75)
[2018-11-05] MEDS ORDERED: ZOFRAN IV PRN (11:20)
[2018-11-05] MEDS ORDERED: PROTONIX 80 MG in NS 80 ML IV ONE (11:20)
[2018-11-05] MEDS ORDERED: SODIUM CHLORIDE 0.9% INJ SCH (11:20)
--- NOTE | 2018-11-05 13:59 | HISTORY AND PHYSICAL ---
PRIMARY CARE PROVIDER: None. CHIEF COMPLAINT: Dark stools, shortness of breath, and lower extremity edema. HISTORY OF PRESENT ILLNESS: Mr. Hickey is a 63-year-old male who carries a past medical history of previous GI bleed in September of 2018, alcohol abuse, emphysema, hyponatremia, and tobacco use, who reported for the last 2 to 3 weeks he has been experiencing increasing shortness of breath along the same time lines. He has had some bilateral lower extremity edema. He reports he quit smoking 6 weeks ago. However, his stools continue to be black. He does not report any bright red blood or any coffee-grounds emesis or hemoptysis. He reports his last alcohol drink was Sunday night. He had 3 beers. He drinks about 2 to 3 beers every other day. He states that yesterday he took 2 of his sister's Lasix pills, a yellow pill, and a white pill to help with his lower extremity edema. His last meal was this morning with occitan sausage. Workup in the ED revealed an hemoglobin and hematocrit of 4 and 15. He was typed and screened, and was given 2 units of blood. We will admit him to the ICU, and initiate him on a Protonix drip as well as consult GI. PAST MEDICAL HISTORY: 1. Recent GI bleed. 2. Alcohol abuse. 3. Emphysema. PAST SURGICAL HISTORY: Recent EGD and colonoscopy. ALLERGIES: No known drug allergies. FAMILY HISTORY: Reports none. The patient is not the best historian. HOME MEDICATIONS: 1. Albuterol sulfate inhaler. 2. Trelegy inhaler. 3. He should be on PPI as well. 4. He was sent home at discharge on Prilosec. REVIEW OF SYSTEMS: Twelve-point review of systems completely negative except for those mentioned in HPI. The patient denies any chest pain, headache, fever, chills, cough, or syncope. He does report an increase in shortness of breath as well as bilateral lower extremity edema, and some epigastric pain that is intermittent. He could not really tell me that the pain was before or after eating or what brought it on but it was nonradiating in nature. PHYSICAL EXAMINATION: VITAL SIGNS: Temperature 98.4 degrees, heart rate 68, respirations 18, blood pressure 122/71, and O2 is 96% on room air. GENERAL: Mr. Hickey is a pleasant 63-year-old male who is sitting up on the stretcher in no acute distress. HEENT: Atraumatic, normocephalic. PERRL. Poor dentition. NECK: Supple. Trachea midline. CARDIOVASCULAR: S1, S2 appreciated. No murmurs, gallops, or rubs. RESPIRATORY: Lung sounds clear bilaterally. GI: Soft, nontender, and nondistended. Positive bowel sounds times 4 quadrants. EXTREMITIES: Lower extremities did not appreciate any edema. NEUROLOGIC: No focal deficits noted. DIAGNOSTIC DATA: Chest x-ray with no acute abnormality. EKG showed a sinus tachycardia with frequent PVCs. LABORATORY DATA: White count 15. Hemoglobin and hematocrit 44.4 and 15.2, and platelet count 321,000. Sodium 135, potassium 3.7, BUN 24, creatinine 0.9, and blood glucose is 96. Alcohol level was 0. ASSESSMENT AND PLAN: 1. GI bleed. The patient will be moved to the ICU. His hemoglobin and hematocrit was 4 and 15. He is going to receive 2 units of PRBC's, and we will recheck his hemoglobin and hematocrit. Consult Gastroenterology. Start him on a Protonix drip for 24 hours, and then Protonix q.12 hours. 2. Alcohol abuse. The patient is in the process of trying to wean down. He drinks 2 to 3 beers every other day. We will need continued discussion on alcohol abstinence. 3. Emphysema. Stable. 4. Acute blood loss anemia. See #1. 5. Further recommendation to follow physician evaluation, laboratory and diagnostic data. Dictated by CARITO Burnett for Corinne Baker MD cc: MD Porfirio Jacobson MD I performed a face to face encounter on the patient. I reviewed all lab and imaging on the patient. I agree with the H&P as dictated. [facility]
[2018-11-05] MEDS: PROTONIX 80 MG in NS 80 ML IV SCH (17:17)
[2018-11-05] MEDS ORDERED: LASIX IV ONE (18:19)
[2018-11-05] MEDS ORDERED: NS NEB INH SCH (18:30)
[2018-11-05 19:19] LABS: HEMATOCRIT 22.4 % (42.0-52.0); HEMOGLOBIN 6.7 g/dL (14.0-18.0)
--- NOTE | 2018-11-05 19:40 | GASTROENTEROLOGY CONSULTATION ---
DATE: 11/05/2018 CONSULTING PHYSICIAN: Corinne Baker MD REASON FOR CONSULTATION: Gastrointestinal bleed and anemia. HISTORY: This is a 63-year-old gentleman known to me from his previous admission. I saw him last month where he presented with similar symptoms. He presented with melena and was found to be anemic. At that time, he underwent EGD and colonoscopy, which were unremarkable. After getting his H and H up, he was discharged to be followed up at the office. He was brought into the emergency room today with a complaint of shortness of breath and melena for the past 2 weeks. On further evaluation, he was found to be severely anemic. His hemoglobin is 4.4 with hematocrit 15.2 and his MCV is 67.0. He is being transfused now and is getting admitted for further evaluation and treatment. The patient denies any indigestion, heartburn, or reflux symptoms. Has had no dysphagia or odynophagia. His appetite has been good. He is eating well and claims that he has not taken any NSAID. He denies any chest pain, shortness of breath. He denies any chest pain but complains of shortness of breath and feeling weak. He has had melena for the past 2 weeks but denies any bright red blood per rectum. PAST MEDICAL HISTORY: Essentially unremarkable except for his recent admission with anemia. PAST SURGICAL HISTORY: He has had EGD and colonoscopy. Other than that, no other surgeries. MEDICATIONS: Prior to his hospitalization, he has been on albuterol, fluticasone and Ellipta. ALLERGIES: No drug allergies. SOCIAL HISTORY: He lives with his family. Does not smoke. Does not drink. Does not do illicit drugs. FAMILY HISTORY: Noncontributory. REVIEW OF SYSTEMS: As per HPI as above. PHYSICAL EXAMINATION: General: Very pleasant gentleman, thin built, conscious, alert, appears to be in no distress. Vitals: Temperature 98.4 degrees, heart rate ranged from 68 to 117, has breathing of 18, blood pressure is 113/71. He weighs about 130 pounds. He is 5 feet 7 inches tall. HEENT: Head is atraumatic, normocephalic. Eyes: Conjunctivae are pale. Sclerae anicteric. Nose: Nares are patent. No discharge. Mouth: Buccal mucosa is moist. Throat is normal. Neck: Supple. No lymphadenopathy or thyromegaly. Chest: Clear to auscultation. Cardiovascular: Heart sounds audible. No murmur. Abdomen: Flat soft, nontender. I could not appreciate any masses or megaly. No ascites noted. Bowel sounds are audible. Extremities: No pedal edema, cyanosis or clubbing was noted. Central nervous system: Grossly intact. No sensory or motor deficit. LABORATORIES: Reviewed. His WBC is 15.39, hemoglobin is 4.4, hematocrit is 15.2, MCV is 67, platelets were 321,000. Sodium 135, potassium 3.7, chloride 98, bicarb 23, BUN is 24, creatinine 0.9, total bilirubin 0.35, AST 17, ALT 14, alkaline phosphatase 50. IMPRESSION: This is a 63-year-old male who has presented a second time to the emergency room with complaints of weakness and shortness of breath. He was found to be severely anemic. He has had melena for the past 2 weeks, most likely has upper gastrointestinal bleed or small bowel bleed. He may have Dieulafoy lesion that was not picked up during his last esophagogastroduodenoscopy since he was not actively bleeding. While he may have again small- bowel bleed. He is in the process of getting hemodynamic resuscitation. He is in the process of getting blood transfusion. I was advised to recheck hemoglobin and hematocrit, transfuse if necessary and keep him on PPI. Once he is stabilized enough for me to proceed with esophagogastroduodenoscopy, we will do so. We will do push enteroscopy and see if we can identify any pathology that would be in the proximal small bowel, if not that he would need a small-bowel follow-through and/or capsule endoscopy, etc. I have explained the findings and plan to the patient. He understands. All his pertinent questions were answered. Patient will be scheduled for push enteroscopy tomorrow. cc: Porfirio Josue MD
[2018-11-05] MEDS: XOPENEX NEB INH SCH ×2 (19:58→22:18)
[2018-11-05] MEDS ORDERED: NS 500 ML ONE (21:45)
[2018-11-06] MEDS: XOPENEX NEB INH SCH ×4 (03:54→21:17)
[2018-11-06] MEDS: PROTONIX 80 MG in NS 80 ML IV SCH (04:25)
[2018-11-06 07:58] LABS: AGAP 10; ALB/GLOB RATIO 1.5; ALBUMIN 3.4 g/dL (3.5-5.0); ALKALINE PHOSPHATASE 54 U/L (32-122); BUN 15 mg/dL (8-22); CALCIUM 7.8 mg/dL (8.8-10.2); CHLORIDE 98 mmol/L (98-107); COSMO 265; CREATININE 0.8 mg/dL (0.7-1.2); ESTIMATED GFR > 60; GLUCOSE 98 mg/dL (70-104); GOT 19 U/L (10-34); GPT 14 U/L (10-44); MAGNESIUM 1.7 mg/dL (1.5-2.7); POTASSIUM 3.5 mmol/L (3.5-5.1); SODIUM 132 mmol/L (136-145); TCO2 24 mmol/L (25-35); TOTAL BILIRUBIN 1.65 mg/dL (0.20-1.00); TOTAL PROTEIN 5.6 g/dL (6.3-8.3)
[2018-11-06 08:02] LABS: BASO# 0.04 X1000 (0.0-0.2); BASO% 0.3 % (0.0-0.8); EOS# 0.16 X1000 (0.0-0.7); EOS% 1.4 % (0.0-10.0); HEMATOCRIT 28.9 % (42.0-52.0); HEMOGLOBIN 9.3 g/dL (14.0-18.0); IMM GRAN# 0.04 X1000 (0.0-0.04); IMM GRAN% 0.3 % (0.0-0.5); LYMPH# 1.39 X1000 (1.2-3.4); LYMPH% 11.8 % (20.5-51.1); MCH 24.9 PG (27-31); MCHC 32.2 g/dL (33-37); MCV 77.3 FL (81-99); MONO# 1.16 X1000 (0.11-0.59); MONO% 9.8 % (1.7-9.3); MPV 10.7 FL (7.4-10.4); NEUT# 8.99 X1000 (1.4-6.5); NEUT% 76.4 % (42.2-75.2); PLT 222 X1000 (130-400); RBC 3.74 XMIL (4.7-6.1); RDW 22.5 % (11.5-14.5); WBC 11.78 X1000 (4.8-10.8)
[2018-11-06] MEDS ORDERED: PROTONIX IV SCH (09:00)
[2018-11-06 11:41] LABS: URINE SOURCE CLEAN CATCH
[2018-11-06 11:44] LABS: BILIRUBIN URINE NEGATIVE (NEGATIVE); BLOOD URINE NEGATIVE (NEGATIVE); COLOR YELLOW; GLUCOSE URINE NEGATIVE (NEGATIVE); KETONE URINE NEGATIVE (NEGATIVE); LEUKOCYTES URINE NEGATIVE (NEGATIVE); NITRITE URINE NEGATIVE (NEGATIVE); PH URINE 6.5; PROTEIN URINE NEGATIVE (NEGATIVE); SP GRAVITY URINE 1.016; TURBIDITY URINE CLEAR (CLEAR); UR EPITHELIAL CELLS <10 /HPF (<10); URINE BACTERIA NEGATIVE /HPF; URINE RBC <10 /HPF (<10); URINE WBC <10 /HPF (<10); UROBILINOGEN URINE 3 mg/dL (NORMAL)
[2018-11-06] MEDS ORDERED: DIPRIVAN 1% ONE ×3 (13:05→15:33)
[2018-11-06] MEDS ORDERED: XYLOCAINE-MPF 2% ONE ×2 (13:06→15:31)
[2018-11-06] MEDS ORDERED: ROBINUL ONE (15:31)
--- NOTE | 2018-11-06 16:27 | PROGRESS NOTE ---
DATE: 11/06/2018 SUBJECTIVE: The patient is resting comfortably in bed. He received a total of 4 units of packed red blood cells yesterday, and his hemoglobin and hematocrit have improved. He is scheduled for EGD today. OBJECTIVE: Vital Signs: Temperature 98.6 degrees, blood pressure 144/93, heart rate 99, respirations 15, O2 saturation 97% on room air. General: This is an elderly male lying in bed in no acute distress. Heart: S1, S2 normal. Tachycardic. Lungs: Equal air entry bilaterally. No wheezing. No rales. Abdomen: Positive bowel sounds. Soft, nontender, nondistended. Extremities: No edema, no cyanosis. Neurologic: The patient is alert and oriented x3. LABS: White blood cell count 11, hemoglobin 9.3, hematocrit 28, platelets 222. Sodium 132, potassium 3.5, chloride 98, CO2 24. BUN 15, creatinine 0.8, glucose 98. ASSESSMENT AND PLAN: 1. Gastrointestinal bleed. The patient is scheduled for an esophagogastroduodenoscopy today. We will monitor the hemoglobin and hematocrit closely. 2. Tobacco dependence. The patient has been counseled about smoking cessation. 3. Emphysema. Aware. 4. History of alcohol abuse. The patient has been counseled about alcohol cessation. cc: Corinne Baker MD
[2018-11-07] MEDS: XOPENEX NEB INH SCH ×4 (03:25→21:20)
[2018-11-07 06:11] LABS: HEMATOCRIT 29.4 % (42.0-52.0); HEMOGLOBIN 9.4 g/dL (14.0-18.0); MCH 24.5 PG (27-31); MCV 76.6 FL (81-99); RBC 3.84 XMIL (4.7-6.1); RDW 21.6 % (11.5-14.5); WBC 11.7 X1000 (4.8-10.8)
[2018-11-07] MEDS: PRILOSEC PO SCH (06:15)
[2018-11-07 06:42] LABS: AGAP 10; BUN 6 mg/dL (8-22); CALCIUM 7.9 mg/dL (8.8-10.2); CHLORIDE 99 mmol/L (98-107); COSMO 264; CREATININE 0.8 mg/dL (0.7-1.2); ESTIMATED GFR > 60; GLUCOSE 105 mg/dL (70-104); POTASSIUM 3.6 mmol/L (3.5-5.1); SODIUM 133 mmol/L (136-145); TCO2 24 mmol/L (25-35)
--- NOTE | 2018-11-07 14:16 | ENDOSCOPY OPERATIVE NOTE ---
[facility] ENDOSCOPY OPERATIVE NOTE , PATIENT: Dar Hickey ADMISSION DATE: 11/06/2018 MR#: [id number] : 1955 EGD PROCEDURE REPORT PROCEDURE DATE: 11/06/2018 SURGEON: Porfirio Josue MD STATUS: inpatient BOTTLE INSPECTOR: Ruby Gonzalez and Alden Frias PREOPERATIVE DIAGNOSIS: The patient is a 63 yr old male here for an EGD due to melena. PROCEDURE PERFORMED: EGD, diagnostic MEDICATIONS: Per Anesthesia TOPICAL ANESTHETIC: none CONSENT: The patient understands the risks and benefits of the procedure and understands that these r isks include, but are not limited to: sedation, allergic reaction, infection, perforation and/or bleeding. Alternative means of evaluation and treatment include, among others: physical exam, x-rays, and/or surgical intervention. The patient elects to proceed with this endoscopic procedure. HISORY AND PHYSICAL: 11/06/2018 function. Hand hygiene and appropriate measures for infection prevention was taken. After the risks, benefits and alternatives of the procedure were thoroughly explained, Informed consent was verified, confirmed and timeout was successfully executed by the treatment team. The patient was anesthetized with topical anesthesia and the [id number] ([id number]) endoscope was introduced through the mouth and advanced to the proximal jejunum. Retroflex ion was performed in the stomach and revealed no abnormalities. The gastroscope was then slowly withdrawn and removed. ESOPHAGUS: The mucosa of the esophagus appeared normal. STOMACH: The mucosa of the stomach appeared normal. DUODENUM: The duodenal mucosa showed no abnormalities. JEJUNUM / ILEUM: The jejunum and ileum were normal. SPECIMENS REMOVED: No ADVERSE EVENTS: There were no complications. POSTOPERATIVE DIAGNOSIS: 1. The mucosa of the esophagus appeared normal 2. The mucosa of the stomach appeared normal 3. The duodenal mucosa showed no abnormalities 4. The jejunum and ileum were normal RECOMMENDATIONS: 1. Resume pre-procedure medications 2. Start Full liquid diet for 1 Day(s) 3. Transfer to ICU 4. Obtain a small bowel follow through REPEAT EXAM: Porfirio Josue MD eSigned: Porfirio Josue MD 11/06/2018 5:32 PM cc: PATIENT NAME: Dar Hickey MR#: [id number]
--- NOTE | 2018-11-07 14:26 | PROGRESS NOTE ---
DATE: 11/07/2018 SUBJECTIVE: The patient is resting comfortably in bed. No acute events noted overnight. OBJECTIVE: Vital Signs: Temperature 98.6 degrees, blood pressure 132/78, heart rate 99, respirations 17, O2 saturation is 96% on room air. General: This is a chronically ill-appearing, elderly male, lying in bed in no acute distress. Heart: S1, S2 normal. Tachycardic. Lungs: Clear to auscultation bilaterally. Abdomen: Positive bowel sounds. Soft, nontender, nondistended. Extremities: No edema, no cyanosis. Neurologic: The patient is alert and oriented x4. Labs: Hemoglobin 9.4, hematocrit 29, platelets 225,000. Sodium 133, potassium 3.6. White blood cell count 11. ASSESSMENT AND PLAN: 1. Gastrointestinal bleed. The patient's hemoglobin and hematocrit are stable. The EGD was negative. Will await further recommendations from GI. 2. Alcohol abuse. The patient states that he still drinks beer and states that he will try to quit. 3. Anemia.. Monitor the H/H. 4. Deep vein thrombosis prophylaxis. Continue with sequential compression devices. cc: Corinne Baker MD [facility]
[2018-11-08] MEDS: XOPENEX NEB INH SCH ×4 (03:25→22:12)
[2018-11-08] MEDS: PRILOSEC PO SCH (06:34)
[2018-11-08 07:32] LABS: HEMATOCRIT 31.1 % (42.0-52.0); HEMOGLOBIN 9.6 g/dL (14.0-18.0); MCH 24.2 PG (27-31); MCHC 30.9 g/dL (33-37); MCV 78.5 FL (81-99); MPV 9.9 FL (7.4-10.4); RBC 3.96 XMIL (4.7-6.1); RDW 22.2 % (11.5-14.5); WBC 13.11 X1000 (4.8-10.8)
[2018-11-08 07:42] LABS: AGAP 10; BUN 3 mg/dL (8-22); CALCIUM 8.5 mg/dL (8.8-10.2); CHLORIDE 100 mmol/L (98-107); COSMO 271; CREATININE 0.6 mg/dL (0.7-1.2); ESTIMATED GFR > 60; GLUCOSE 105 mg/dL (70-104); POTASSIUM 4.1 mmol/L (3.5-5.1); SODIUM 137 mmol/L (136-145); TCO2 27 mmol/L (25-35)
--- NOTE | 2018-11-08 09:08 | Diag Imaging Result Doc PS360 ---
EXAM: CHEST-PORTABLE 11/08/2018 HISTORY: dyspnea TECHNIQUE: AP portable at 0856 COMMENT: There is pleural thickening or loculated fluid in the left costophrenic angle. There is increased ill-defined opacity in the left base which was also present on 11/05/2018, although this appears slightly worse today. The pleural effusions which were present on 10/14/2018 bilaterally have diminished and on the right completely resolved. IMPRESSION: Pulmonary edema and/or pneumonia particularly in the left lower lobe. Left pleural effusion. Electronically signed by Xander Marks 11/08/2018 9:05 AM
[2018-11-08] MEDS: ZYVOX 600 MG/D5W 600 MG/300 ML IVPB IV SCH ×2 (09:50→21:31)
[2018-11-08] MEDS: MAXIPIME 1 GM in NS 50 ML IV SCH ×2 (09:50→20:54)
--- NOTE | 2018-11-08 13:17 | Diag Imaging Result Doc PS360 ---
EXAM: SMALL BOWEL SERIES ONLY 11/08/2018 HISTORY: Melena, Profound anemia and normal scopes TECHNIQUE: Small bowel series, eight images COMMENT: There is barium within the colon by 90 minutes. There is a fairly large amount of stool throughout the colon. There is no evidence of small bowel dilatation or mucosal fold thickening. There is no apparent tenderness to palpation. IMPRESSION: Constipation. No evidence of small bowel abnormality. Electronically signed by Xander Marks 11/08/2018 1:15 PM
--- NOTE | 2018-11-08 15:09 | PROGRESS NOTE ---
DATE: 11/08/2018 SUBJECTIVE: The patient is resting comfortably. He complains of a productive cough. OBJECTIVE: Vital Signs: Temperature 98.3 degrees, blood pressure 144/86, heart rate 95, respiratory rate 16, O2 saturation is 100% on room air. General: This is a chronically ill- appearing elderly male lying in bed in no acute distress. Heart: S1, S2 normal. Regular rate and rhythm. Lungs: Clear to auscultation bilaterally. No wheezing. No rales. Abdomen: Positive bowel sounds. Soft, nontender, nondistended. Extremities: No edema, no cyanosis, no calf tenderness. Neurologic: The patient is alert and oriented x3. LABS: Hemoglobin 9.6, hematocrit 31, platelets 237,000. White blood cell count 13. Sodium 137, potassium 4.1, chloride 100, calcium 8.5, BUN 3, creatinine 0.6. Chest x-ray with pneumonia in the left lower lobe. Left pleural effusion. ASSESSMENT AND PLAN: 1. Possible pneumonia. We will order blood and sputum cultures. We will also start the patient on antibiotic therapy. Continue with bronchodilator therapy. Repeat CT chest tomorrow. 2. Gastrointestinal bleed. The EGD did not reveal a source of bleeding, and the small bowel follow-through revealed constipation. The patient may need an outpatient capsule endoscopy. 3. Alcohol abuse. The patient has been counseled extensively about cessation. 4. Microcytic anemia. Stable. 5. Leukocytosis. Antibiotics have been initiated. 6. Severe COPD with emphysema. Aware. Continue on bronchodilator therapy. 7. Deep vein thrombosis prophylaxis. Continue with SCDs. cc: Corinne Baker MD [facility]
--- NOTE | 2018-11-08 16:22 | GASTROENTEROLOGY PROGRESS NOTE ---
DATE: 11/08/2018 SUBJECTIVE: Patient has not had a bowel movement in several days. Hemoglobin and hematocrit stable 9.6, 31.1. EGD with push enteroscopy on 11/06/2018 showed normal esophagus, normal stomach, and normal duodenum. Normal jejunum and ileum with no evidence of active bleeding. Small bowel follow-through was done today that showed no evidence of small bowel abnormality. Findings showed constipation. There was no evidence of small bowel dilatation or mucosal thickening. There was a fairly large amount of stool throughout the colon. OBJECTIVE: Vital Signs: Temperature 98.3 degrees, pulse 97, respirations 18, blood pressure 144/86. General: Patient is awake, alert, in no acute distress. LABORATORY: Hematology 13.1, hemoglobin 9.6, hematocrit 31.1, MCV 78.5, platelets 237,000. Chemistry 137, potassium 4.1, chloride 100, CO2 27, BUN 3, creatinine 0.6, glucose 105, calcium 8.5, small bowel follow-through as described above. ASSESSMENT AND PLAN: 1. Recent gastrointestinal bleeding. Patient received 4 units of packed red blood cells since admission. Hemoglobin and hematocrit are stable today. 2. Anemia is stable. Continue to monitor. Transfuse further packed red blood cells as needed. Patient had EGD with push enteroscopy that was negative. Small bowel follow through negative except for constipation. Will add Pilar-Colace tablets every night. Continue to monitor for further signs of bleeding. I have discussed this case with Dr. Josue. Dictated by CARITO Antonio for Porfirio Jouse MD cc: CARITO Jansen MD
[2018-11-08 20:28] LABS: URINE SOURCE CLEAN CATCH
[2018-11-08 20:37] LABS: BILIRUBIN URINE NEGATIVE (NEGATIVE); BLOOD URINE NEGATIVE (NEGATIVE); COLOR STRAW; GLUCOSE URINE NEGATIVE (NEGATIVE); KETONE URINE NEGATIVE (NEGATIVE); LEUKOCYTES URINE NEGATIVE (NEGATIVE); NITRITE URINE NEGATIVE (NEGATIVE); PH URINE 6.5; PROTEIN URINE NEGATIVE (NEGATIVE); SP GRAVITY URINE 1.004; TURBIDITY URINE CLEAR (CLEAR); UR EPITHELIAL CELLS <10 /HPF (<10); URINE BACTERIA NEGATIVE /HPF; URINE RBC <10 /HPF (<10); URINE WBC <10 /HPF (<10); UROBILINOGEN URINE NORMAL (NORMAL)
[2018-11-08] MEDS: PERICOLACE PO SCH (20:54)
[2018-11-09] MEDS: XOPENEX NEB INH SCH ×4 (03:27→21:55)
[2018-11-09] MEDS: PRILOSEC PO SCH (06:19)
[2018-11-09 08:21] LABS: HEMATOCRIT 31.5 % (42.0-52.0); HEMOGLOBIN 9.8 g/dL (14.0-18.0); MCH 24.6 PG (27-31); MCHC 31.1 g/dL (33-37); MCV 78.9 FL (81-99); MPV 9.7 FL (7.4-10.4); RBC 3.99 XMIL (4.7-6.1); RDW 22.6 % (11.5-14.5); WBC 14.15 X1000 (4.8-10.8)
[2018-11-09 08:48] LABS: AGAP 9; BUN 5 mg/dL (8-22); CALCIUM 8.3 mg/dL (8.8-10.2); CHLORIDE 92 mmol/L (98-107); COSMO 255; CREATININE 0.6 mg/dL (0.7-1.2); ESTIMATED GFR > 60; GLUCOSE 103 mg/dL (70-104); POTASSIUM 3.9 mmol/L (3.5-5.1); SODIUM 128 mmol/L (136-145); TCO2 27 mmol/L (25-35)
[2018-11-09] MEDS: MAXIPIME 1 GM in NS 50 ML IV SCH ×2 (09:36→21:17)
[2018-11-09] MEDS: ZYVOX 600 MG/D5W 600 MG/300 ML IVPB IV SCH (09:37)
[2018-11-09] MEDS ORDERED: VANCOMYCIN IV PER PHARMACY MISC SCH (10:45)
[2018-11-09] MEDS ORDERED: VANCOMYCIN 1,800 MG in NS 250 ML IV ONE (12:30)
[2018-11-09] MEDS: NS 1,000 ML IV SCH (12:45)
--- NOTE | 2018-11-09 15:12 | Diag Imaging Result Doc PS360 ---
EXAM: CT THORAX W/CONTRAST 11/09/2018 HISTORY: pneumonia TECHNIQUE: This exam was performed using automated exposure control, adjustment of mA or kV according to patient size, and/or use of iterative reconstruction technique. COMMENT: The current study is compared with the previous examination of 09/24/2018. There is severe COPD in the upper lung zones. There is scarring with calcification present in the right apex. There are bilateral pleural effusions which were not present at the time the previous study. There is some compressive atelectasis in both lower lobes. There is stenosis of the posterior division of the right upper lobe bronchus. This was not the case at the time the previous study. There is some worsened atelectasis in the right upper lobe. The possibility of postobstructive pneumonitis cannot be excluded. No evidence of acute bony disease is present. IMPRESSION: Bilateral pleural effusions and basilar atelectasis. COPD. Fibrosis and calcification in the right upper lobe. The possibility of an endobronchial lesion in the right upper lobe cannot be excluded and further evaluation is recommended. Electronically signed by Xander Marks 11/09/2018 3:09 PM
--- NOTE | 2018-11-09 16:17 | PROGRESS NOTE ---
DATE: 11/09/2018 SUBJECTIVE: The patient is resting comfortably in bed. He complains of a persistent cough. He states that he is no longer having dark tarry stools. OBJECTIVE: Vital Signs: Temperature 97.6 degrees, blood pressure 146/83, heart rate 98, respirations 20, O2 saturation 98% on room air. General: This is an elderly male lying in bed in no acute distress. Heart: S1, S2 normal. Regular rate and rhythm. Lungs: Equal air entry bilaterally. No wheezing. No rales. Abdomen: Positive bowel sounds. Soft, nontender, nondistended. Extremities: No edema, no cyanosis. Neurologic: The patient is alert and oriented x4. LABS: White blood cell count 14, hemoglobin 9.8, hematocrit 31, platelets 221. Sodium 128, potassium 3.9, chloride 92. BUN 5, creatinine 0.6 glucose 103. IMAGING PROCEDURE: Chest CT shows bilateral pleural effusions and basilar atelectasis. There is fibrosis and calcification in the right upper lobe. Possibility of an endobronchial lesion in the right upper lobe cannot be excluded. Possibly postobstructive pneumonitis. ASSESSMENT AND PLAN: 1. Recurrent gastrointestinal bleed. The patient's hemoglobin and hematocrit are stable. The patient initially required 4 units of packed red blood cells on admission. This is the patient's second EGD in a span of 1 month. The colonoscopy last month did not reveal a source of bleeding. The patient would likely benefit from capsule endoscopy as outpatient. We will continue to monitor the patient while hospitalized. GI is following. 2. Possible pneumonitis. The patient's white blood cell count is elevated. We will continue with antibiotic therapy and bronchodilator therapy. 3. Possible endobronchial lesion. Will consult with the caterpillar driver for further recommendations. 4. Alcohol abuse. The patient has been counseled about cessation. 5. Hyponatremia. We will start the patient on normal saline. We will also check urine sodium and urine osmolality. 6. Microcytic anemia. Hemoglobin and hematocrit are stable. 7. Bilateral pleural effusions. Stable. 8. Severe chronic obstructive pulmonary disease with emphysema. Aware. 9. Deep vein thrombosis prophylaxis. Continue with sequential compression devices. cc: Corinne Baker MD [facility]
[2018-11-09] MEDS: PERICOLACE PO SCH (21:16)
[2018-11-10] MEDS: VANCOMYCIN 1,300 MG in NS 250 ML IV SCH ×2 (00:45→14:15)
[2018-11-10] MEDS: XOPENEX NEB INH SCH ×4 (03:56→22:38)
[2018-11-10] MEDS: NS 1,000 ML IV SCH ×2 (06:10→10:30)
[2018-11-10] MEDS: PRILOSEC PO SCH (06:10)
[2018-11-10 07:35] LABS: HEMATOCRIT 29.3 % (42.0-52.0); HEMOGLOBIN 9.1 g/dL (14.0-18.0); MCH 24.1 PG (27-31); MCHC 31.1 g/dL (33-37); MCV 77.7 FL (81-99); MPV 9.6 FL (7.4-10.4); RBC 3.77 XMIL (4.7-6.1); RDW 22.4 % (11.5-14.5); WBC 13.29 X1000 (4.8-10.8)
[2018-11-10 07:38] LABS: RETIC% 3.78 % (0.8-2.1); RETIC-HE 18.5 PG (28.2-36.6)
[2018-11-10 07:53] LABS: AGAP 9; BUN 4 mg/dL (8-22); CALCIUM 8.7 mg/dL (8.8-10.2); CHLORIDE 96 mmol/L (98-107); COSMO 260; CREATININE 0.7 mg/dL (0.7-1.2); ESTIMATED GFR > 60; GLUCOSE 113 mg/dL (70-104); POTASSIUM 4.3 mmol/L (3.5-5.1); SODIUM 131 mmol/L (136-145); TCO2 26 mmol/L (25-35)
[2018-11-10 07:57] LABS: IRON SATURATION 5 %; TIBC 366 ug/dL; TOTAL IRON 18 ug/dL (53-167); UNBOUND IRON 348 ug/dL (112-346)
[2018-11-10 08:07] LABS: FERRITIN 23 ng/mL (30-400)
[2018-11-10] MEDS: FOLIC ACID PO SCH (10:01)
[2018-11-10] MEDS: MAXIPIME 1 GM in NS 50 ML IV SCH ×2 (10:01→20:30)
[2018-11-10] MEDS: ICAR-C PO SCH ×2 (10:05→20:28)
--- NOTE | 2018-11-10 10:14 | Diag Imaging Result Doc PS360 ---
EXAM: ABDOMEN FLAT/UPRIGHT 11/10/2018 HISTORY: constipation TECHNIQUE: Flat and upright abdomen two views COMMENT: There is some retained barium in the rectum and to lesser extent in the remainder of the colon. The volume of stool present in the colon at the time the previous small bowel study has diminished. There is no evidence of gastric or small bowel dilatation. No evidence of organomegaly or mass is present. IMPRESSION: Improved constipation. Electronically signed by Xander Marks 11/10/2018 10:11 AM
--- NOTE | 2018-11-10 10:51 | PROGRESS NOTE ---
DATE: 11/10/2018 SUBJECTIVE: The patient is resting comfortably in bed. He does complain of a persistent cough. He states that his bowel movement last night was liquid. OBJECTIVE: Vital Signs: Temperature 98.4 degrees, blood pressure 120/78, heart rate 102, respirations 20, O2 saturation 97% on room air. General: This is a chronically ill-appearing elderly male, lying in bed, in no acute distress. Heart: S1, S2 normal. Tachycardic. Lungs: Diminished breath sounds bilaterally. No wheezing. No rales. Abdomen: Positive bowel sounds. Soft, nontender, nondistended. Extremities: No edema, no cyanosis. Neurologic: The patient is alert and oriented x4. No focal neurologic deficits noted. LABS: White blood cell count 13, hemoglobin 9.1, hematocrit 29, platelets 195,000, reticulocyte 3.7. Sodium 131, potassium 4.3, chloride 96, CO2 26, BUN 4, creatinine 0.7, glucose 113. Iron level 18, percent saturation 5, folate 6.3. ASSESSMENT AND PLAN: 1. Recurrent gastrointestinal bleed. The patient's hemoglobin and hematocrit remain stable. We will advance the patient to a GI soft diet. The patient will have further followup with GI as outpatient. 2. Possible pneumonitis. Continue with antibiotic therapy, oxygen and bronchodilator therapy. 3. Possible endobronchial lesion. We will await further recommendations from the vp [employer]. 4. Hyponatremia. Slightly improved. Continue with IV fluid. 5. Alcohol abuse. The patient has been counseled about cessation. 6. Iron deficiency anemia. Continue with iron supplementation. 7. Chronic obstructive pulmonary disease with emphysema. Aware. Continue with bronchodilator therapy. 8. Bilateral pleural effusions. Stable. 9. Deep vein thrombosis prophylaxis. Continue with SCDs. 10. We will consult Physical Therapy. cc: Corinne Baker MD [facility]
[2018-11-10] MEDS: PERICOLACE PO SCH (20:28)
--- NOTE | 2018-11-10 21:40 | PULMONOLOGY CONSULTATION ---
DATE: 11/10/2018 REQUESTING PHYSICIAN: Dr. Baker. REASON FOR CONSULTATION: Possible endobronchial lesion. HISTORY OF PRESENT ILLNESS: Mr. Hickey is a 63-year-old black male with a greater than 40 pack- year history for tobacco who stopped smoking approximately 6 weeks ago due to increasing shortness of breath. The patient presented to the emergency room 11/05/2018 with severe shortness of breath and dark tarry stools. He had severe anemia with a hemoglobin of 4.4. He was microcytic with MCV of 67 and his iron numbers were low. He has been evaluated by the GI service but no lesion was identified on an upper endoscopy or in the duodenum. He did have a small bowel followthrough which was also negative, although he had a large amount stool within the colon. A CT scan of the thorax was performed yesterday which reveals scarring with calcification in the right upper lobe, severe emphysematous changes, bilateral effusions, with possible stenosis or endobronchial lesion in the posterior segment of the right upper lobe. Pulmonary consultation was requested. PAST MEDICAL HISTORY: 1. COPD. 2. Alcohol use. 3. Melena with microcytic anemia as per above. 4. History of snake bite as a child. SOCIAL HISTORY: Prior alcohol and tobacco use. FAMILY HISTORY: Noncontributory current presentation. REVIEW OF SYSTEMS: Notable for cough, generalized weakness, decreased appetite, unspecified weight loss. PHYSICAL EXAMINATION: Reveals a thin male who appears his stated age in no distress. BP 132/90, heart rate 97, respiratory rate 20, oxygen saturation 100% on room air.HEENT: Pupils are equal and reactive. Oropharynx appears clear. Neck: Supple. Chest: Reveals prolonged expiratory phase with decreased breath sounds in the lung bases. Cardiac: S1, S2. Abdomen: Scaphoid and soft. Extremities: Without edema. IMPRESSION: 1. Possible endobronchial lesion/abnormal CT scan of the thorax as outlined above. 2. History of tobacco use/nicotine addiction. 3. Dyspnea on exertion. 4. Iron deficiency anemia. 5. Bilateral pleural effusions. RECOMMENDATIONS: 1. Consider iron replacement for his severe iron deficiency anemia. 2. Will plan bronchoscopy. Hopefully this can be completed on Sunday morning. The schedule is not available for tomorrow. cc: Santiago Presley MD
[2018-11-11] MEDS: VANCOMYCIN 1,300 MG in NS 250 ML IV SCH (00:16)
[2018-11-11] MEDS: NS 1,000 ML IV SCH (00:16)
[2018-11-11] MEDS: XOPENEX NEB INH SCH ×4 (03:49→22:34)
[2018-11-11] MEDS: PRILOSEC PO SCH (06:11)
[2018-11-11 07:24] LABS: HEMATOCRIT 30.7 % (42.0-52.0); HEMOGLOBIN 9.4 g/dL (14.0-18.0); MCH 24.1 PG (27-31); MCHC 30.6 g/dL (33-37); MCV 78.7 FL (81-99); MPV 9.6 FL (7.4-10.4); RBC 3.9 XMIL (4.7-6.1); RDW 22.4 % (11.5-14.5); WBC 14.29 X1000 (4.8-10.8)
[2018-11-11 07:39] LABS: AGAP 11; ALB/GLOB RATIO 1.1; ALBUMIN 3.2 g/dL (3.5-5.0); ALKALINE PHOSPHATASE 72 U/L (32-122); BUN 4 mg/dL (8-22); CALCIUM 8.6 mg/dL (8.8-10.2); CHLORIDE 96 mmol/L (98-107); COSMO 264; CREATININE 0.6 mg/dL (0.7-1.2); ESTIMATED GFR > 60; GLUCOSE 109 mg/dL (70-104); GOT 18 U/L (10-34); GPT 11 U/L (10-44); MAGNESIUM 1.7 mg/dL (1.5-2.7); PHOSPHORUS 3.3 mg/dL (2.7-4.5); POTASSIUM 4.1 mmol/L (3.5-5.1); SODIUM 133 mmol/L (136-145); TCO2 26 mmol/L (25-35); TOTAL BILIRUBIN 0.37 mg/dL (0.20-1.00)
[2018-11-11] MEDS: FOLIC ACID PO SCH (09:11)
[2018-11-11] MEDS: VENOFER 200 MG in NS 150 ML IV SCH (09:12)
[2018-11-11] MEDS: MAXIPIME 1 GM in NS 50 ML IV SCH ×2 (09:12→21:38)
[2018-11-11] MEDS: ICAR-C PO SCH ×2 (09:12→21:38)
--- NOTE | 2018-11-11 10:38 | Diag Imaging Result Doc PS360 ---
EXAM: CHEST-2 VIEWS HISTORY: pneumonitis TECHNIQUE: Chest two views COMPARISON: 11/08/2018 FINDINGS: The lungs are hyperexpanded. Increased AP diameter to the chest. No cardiomegaly. There is scarring with calcifications in the right apex. Tiny pleural effusions. No consolidation. IMPRESSION: Emphysema with fibrosis and small pleural effusions. Electronically signed by Sam Adorno 11/11/2018 10:35 AM
[2018-11-11] MEDS: VANCOMYCIN 1,500 MG in NS 250 ML IV SCH (14:35)
--- NOTE | 2018-11-11 15:07 | PROGRESS NOTE ---
DATE: 11/11/2018 SUBJECTIVE: The patient is sitting up in a chair. He complains of occasional coughing spells. He has no other complaints. OBJECTIVE: Vital Signs: Temperature 98.9 degrees, blood pressure 135/82, heart rate 109, respirations 18, O2 saturation 97% on room air. General: This is a chronically ill-appearing, elderly male, sitting up in a chair in no acute distress. HEENT: Head normocephalic, atraumatic. Heart: S1, S2 normal. Tachycardic. Lungs: Diminished breath sounds bilaterally. No wheezing, no rales. Abdomen: Positive bowel sounds. Soft, nontender, nondistended. Extremities: No edema, no cyanosis. Neurologic: The patient is alert and oriented x4. LABORATORY DATA: White blood cell count 14, hemoglobin 9.4, hematocrit 30, platelets 188,000. Sodium 133, potassium 4.1, chloride 96, CO2 of 26, BUN 4, creatinine 0.6, glucose 109. Magnesium 1.7, phosphorus 3.3. ASSESSMENT AND PLAN: 1. Recurrent gastrointestinal bleed. The patient has undergone two EGDs and a colonoscopy in the span of 1 month with no obvious source of bleeding found. At this time, his hemoglobin and hematocrit are stable. The patient is scheduled to follow up with Dr. Arroyo at the [facility] on 12/03/2018 at 1:30 p.m. to discuss capsule endoscopy. The patient has been advised to stay away from nonsteroidal anti- inflammatory drugs. Will continue on omeprazole. 2. Possible pneumonitis. Continue with antibiotic therapy, oxygen, and bronchodilator therapy. 3. Possible endobronchial lesion. The patient is scheduled for bronchoscopy tomorrow by Dr. Presley. 4. Alcohol abuse. The patient has been counseled about cessation. 5. Iron-deficiency anemia. The patient is currently receiving Venofer infusion. 6. Chronic obstructive pulmonary disease with emphysema. Aware. 7. Deep vein thrombosis prophylaxis. Continue with sequential compression devices. 8. Continue with physical therapy. cc: Corinne Baker MD [facility]
--- NOTE | 2018-11-11 20:05 | PULMONOLOGY PROGRESS NOTE ---
DATE: 11/11/2018 SUBJECTIVE: The patient is awake, alert, and conversant. He has occasional cough but no other complaints. OBJECTIVE: Vital Signs: The patient has been afebrile for the last 24 hours. Blood pressure 135/82, heart rate 109, respiratory rate 18, oxygen saturation 97% on room air. HEENT: Pupils are equal and reactive. Oropharynx appears clear. Neck: Supple. Chest: Reveals mild prolonged expiratory phase. Cardiac exam: S1, S2. Abdomen: Soft. Extremities: Without edema. LABORATORY DATA: White blood count 14.3, hemoglobin 9.4, platelet count 188,000, sodium 133, potassium 4.1, chloride 96, bicarbonate 26, BUN 4, creatinine 0.6, glucose 109. IMPRESSION: A 63-year-old with: 1. Chronic obstructive pulmonary disease. 2. Dyspnea on exertion. 3. Abnormal CT scan of the thorax with possible endobronchial lesion. 4. Bilateral pleural effusions. 5. Iron-deficiency anemia. PLAN: We will schedule bronchoscopy for tomorrow morning to rule out endobronchial lesion. All his questions were answered. cc: Santiago Presley MD
[2018-11-11] MEDS: PERICOLACE PO SCH (21:38)
[2018-11-12] MEDS: VANCOMYCIN 1,500 MG in NS 250 ML IV SCH ×2 (01:55→14:14)
[2018-11-12] MEDS: XOPENEX NEB INH SCH ×4 (03:30→21:31)
[2018-11-12] MEDS ORDERED: DIPRIVAN 1% ONE (06:22)
[2018-11-12] MEDS: PRILOSEC PO SCH ×2 (06:39→11:08)
[2018-11-12 06:49] LABS: BASO# 0.06 X1000 (0.0-0.2); BASO% 0.5 % (0.0-0.8); HEMATOCRIT 30.6 % (42.0-52.0); HEMOGLOBIN 9.4 g/dL (14.0-18.0); IMM GRAN# 0.02 X1000 (0.0-0.04); IMM GRAN% 0.2 % (0.0-0.5); LYMPH# 1.29 X1000 (1.2-3.4); LYMPH% 10.3 % (20.5-51.1); MCH 23.7 PG (27-31); MCHC 30.7 g/dL (33-37); MCV 77.1 FL (81-99); MONO# 1.44 X1000 (0.11-0.59); MONO% 11.5 % (1.7-9.3); MPV 9.9 FL (7.4-10.4); NEUT# 9.17 X1000 (1.4-6.5); NEUT% 73.5 % (42.2-75.2); PLT 201 X1000 (130-400); RBC 3.97 XMIL (4.7-6.1); RDW 22.4 % (11.5-14.5); WBC 12.48 X1000 (4.8-10.8)
[2018-11-12 07:08] LABS: AGAP 11; BUN 5 mg/dL (8-22); CALCIUM 9.1 mg/dL (8.8-10.2); CHLORIDE 97 mmol/L (98-107); COSMO 266; CREATININE 0.6 mg/dL (0.7-1.2); ESTIMATED GFR > 60; GLUCOSE 103 mg/dL (70-104); SODIUM 134 mmol/L (136-145); TCO2 26 mmol/L (25-35)
[2018-11-12] MEDS ORDERED: SODIUM CHLORIDE 0.9% 20 ML ONE (07:15)
[2018-11-12] MEDS ORDERED: XYLOCAINE 2% VISCOUS ONE (07:15)
[2018-11-12] MEDS ORDERED: EPINEPHRINE ONE (07:15)
[2018-11-12] MEDS ORDERED: XYLOCAINE 2% ONE (07:15)
[2018-11-12] MEDS: MAXIPIME 1 GM in NS 50 ML IV SCH ×2 (08:50→20:59)
--- NOTE | 2018-11-12 09:37 | OPERATIVE NOTE ---
PROCEDURE DATE: 11/12/2018 PROCEDURE PERFORMED: Bronchoscopy. CLINICAL INDICATIONS: A 63-year-old male with a history of tobacco use with recent CT scan that revealed a possible endobronchial lesion in the right upper lobe. DESCRIPTION OF PROCEDURE: The patient was identified in the procedure room, and his name and birthday were correct. A time-out was performed and these identifiers were repeated. All questions were answered prior to the initiation of the procedure. Topical anesthesia was achieved with nebulized lidocaine to the airways along with viscous lidocaine to the right nostril. During the procedure, 2% lidocaine was instilled above and below the vocal cords. Sedation was achieved by monitored anesthesia care. When topical anesthesia and sedation were achieved, bronchoscope was advanced through the right nostril to the level of the vocal cords. The vocal cords were smooth and without lesions. The bronchoscope was advanced into the trachea. There was mild increase in clear hernandez secretions, consistent with chronic bronchitis. Mucosal pitting was identified in the airway, which also was consistent with chronic bronchitis. Airways to the right and left mainstem, left upper lobe lingula, and left lower lobe were patent and without lesions. Airways to the right middle lobe and right lower lobe were patent and without lesions. The bronchoscope was directed to the right upper lobe. The anterior, posterior, and apical segments were engaged and visualized. No airway lesions could be seen to the limitation of the scope, which reached the first subsegmental divisions. Washings were performed from the posterior segment and the apical segment of the right upper lobe. Brushings were performed from the posterior segment and the apical segment of the right upper lobe. IMPRESSION: 1. No endobronchial lesion identified at the level of the scope visualization. 2. Brushings and washings performed as per above. 3. Findings consistent with chronic bronchitis noted in the airway. RECOMMENDATIONS: Recommend followup CT scan in 3 months to ensure that the lesion was not beyond the limitation of visualization with the bronchoscope. cc: Santiago Presley MD
[2018-11-12] MEDS: VENOFER 200 MG in NS 150 ML IV SCH (09:53)
[2018-11-12] MEDS: FOLIC ACID PO SCH (11:08)
[2018-11-12] MEDS: ICAR-C PO SCH ×2 (11:08→20:59)
--- NOTE | 2018-11-12 17:45 | PROGRESS NOTE ---
DATE: 11/12/2018 SUBJECTIVE: This is a 63-year-old male who has no primary care physician, came in with a past medical history of previous GI bleed in September 2018, alcohol abuse, emphysema, hyponatremia, tobacco use, who reported the last 2 to 3 weeks he has been experiencing increasing shortness of breath. Along the same lines, he had some bilateral lower extremity edema. Quit smoking about 6 weeks ago. However, stools have continued to be black. He does not report any bright red blood or coffee-grounds emesis or hematemesis. Reports last alcohol drink was Sunday night and he had 3 beers. He drinks about 2 to 3 beers every other day. States that the day before admission he took 2 of his sister's Lasix pills and a yellow pill and a white pill to help lower extremity edema. Last meal was the morning of admission, [place] sausage. Workup in the ED reveals hemoglobin and hematocrit 4 and 15 respectively. Typed and screened and given 2 units of packed red blood cells. He has not had any further sign of bleeding. He is asking if he can go home. OBJECTIVE: Vital signs: Temp 97.9 degrees, pulse 100, respirations 16, blood pressure 147/82. HEENT: Pupils are equal and round. Lungs: Clear in all lung abdi. Cardiovascular: Regular rhythm and rate without murmur or S3. Urine output is 2600 mL. ASSESSMENT AND PLAN: 1. Recurrent gastrointestinal bleed. He has undergone EGD and colonoscopy in a span of 1 month and no obvious source of bleeding found. At this time his hematocrit and hemoglobin are stable. He will follow with Dr. Arroyo at [facility]. They have discussed capsule endoscopy and advised to stay off nonsteroidal anti-inflammatories. 2. Possible pneumonitis, which has resolved. Continue his antibiotic therapy another 24 hours. 3. Possible endobronchial lesion which is scheduled for bronchoscopy per Dr. Presley. 4. Alcohol abuse. Continue to business and financial counsel about cessation of alcohol. 5. Iron deficiency anemia. He received some Venofer infusion. 6. Deep venous thrombosis prophylaxis. He is on sequential compression stockings. 7. Continue his physical therapy. I do not see any change in his medication. We will discuss with the crew about when he can go home. So bronchoscopy was done. No endobronchial lesions identified at the level scope visualization. Brushings and washings performed. Findings consistent with chronic bronchitis in the airway. cc: Emre Mann MD
[2018-11-12] MEDS: PERICOLACE PO SCH (20:59)
[2018-11-13] MEDS: VANCOMYCIN 1,500 MG in NS 250 ML IV SCH ×2 (01:41→14:21)
[2018-11-13] MEDS: XOPENEX NEB INH SCH ×2 (03:12→10:57)
[2018-11-13] MEDS: PRILOSEC PO SCH (06:30)
[2018-11-13 07:12] VITALS: BP 133/90
[2018-11-13 07:35] LABS: BASO# 0.08 X1000 (0.0-0.2); BASO% 0.7 % (0.0-0.8); EOS# 0.49 X1000 (0.0-0.7); EOS% 4.1 % (0.0-10.0); HEMATOCRIT 31.7 % (42.0-52.0); HEMOGLOBIN 9.6 g/dL (14.0-18.0); IMM GRAN# 0.03 X1000 (0.0-0.04); IMM GRAN% 0.2 % (0.0-0.5); LYMPH# 1.15 X1000 (1.2-3.4); LYMPH% 9.6 % (20.5-51.1); MCH 23.5 PG (27-31); MCHC 30.3 g/dL (33-37); MCV 77.5 FL (81-99); MONO# 1.32 X1000 (0.11-0.59); NEUT# 8.96 X1000 (1.4-6.5); NEUT% 74.4 % (42.2-75.2); PLT 195 X1000 (130-400); RBC 4.09 XMIL (4.7-6.1); RDW 22.6 % (11.5-14.5); WBC 12.03 X1000 (4.8-10.8)
[2018-11-13 07:58] LABS: ANISOCYTOSIS 2+; BANDS 2 % (0-1); EOS 1 % (1-10); LYMPHS 9 % (21-51); MONO 5 % (1-9); SEGS 83 % (42-75)
[2018-11-13 07:59] LABS: AGAP 10; BUN 4 mg/dL (8-22); CALCIUM 8.9 mg/dL (8.8-10.2); CHLORIDE 97 mmol/L (98-107); COSMO 267; CREATININE 0.5 mg/dL (0.7-1.2); ESTIMATED GFR > 60; GLUCOSE 98 mg/dL (70-104); POTASSIUM 4.4 mmol/L (3.5-5.1); SODIUM 135 mmol/L (136-145); TCO2 28 mmol/L (25-35)
[2018-11-13] MEDS: FOLIC ACID PO SCH (08:32)
[2018-11-13] MEDS: VENOFER 200 MG in NS 150 ML IV SCH (08:32)
[2018-11-13] MEDS: MAXIPIME 1 GM in NS 50 ML IV SCH (08:32)
[2018-11-13] MEDS: ICAR-C PO SCH (08:32)
--- NOTE | 2018-11-13 09:27 | DISCHARGE SUMMARY ---
ADMISSION DATE: 11/05/2018 DISCHARGE DATE: 11/13/2018 HISTORY OF PRESENT ILLNESS: This is a 63-year-old , who came in with past medical history of previous GI bleed in September 2018, alcohol abuse, emphysema, hyponatremia and tobacco use reported. For the past 2 or 3 weeks, he has been experiencing increased shortness of breath even at rest. He had some bilateral lower extremity edema. He reports quit smoking about 6 weeks ago. However, stools continue to be black. He does not report any bright red blood stool or coffee-ground emesis or hemoptysis. He reports his last alcohol drink was Sunday. He had 3 beers. He drinks about 2 to 3 beers every day. States that the day before admission he took 2 of his sisters Lasix pills, a yellow pill and a white pill, to help extremity edema. Last meal was the morning of admission. He said he ate some [place] sausage. Workup in the emergency room revealed hemoglobin and hematocrit 4 and 15. He was typed and screened, given 2 units of blood. PAST MEDICAL HISTORY: 1. Recent GI bleed. 2. Alcohol abuse. 3. Emphysema PAST SURGICAL HISTORY: EGD and colonoscopy done. ADMISSION DIAGNOSES: 1. He went to the intensive care unit with gastrointestinal bleed, given 2 units of packed red blood cells. Gastroenterology was consulted. 2. History of alcohol abuse. Wanted to try and wean him off the alcohol. 3. Emphysema, stable. 4. Acute blood loss anemia. Given a couple units of packed red blood cells. HOSPITAL COURSE: Dr. Josue evaluated. Had severe anemia and melena for 2 weeks, and felt it was most like an upper gastrointestinal bleed or it could be a small bowel bleed as well. Endoscopy was done on 11/06. Mucosa of the stomach appeared normal. Duodenal mucosa showed no abnormalities. Jejunum and ileum were normal. Put him on proton pump inhibitor. Liquid diet. Able to advance his diet. CT of the chest on 11/09: Bilateral pleural effusions, bilateral atelectasis, chronic obstructive pulmonary disease, fibrosis and calcification in the right upper lobe. The possibility of an endobronchial lesion in the right upper lobe could not be excluded, and further evaluation was recommended. Dr. Presley evaluated on 11/10. Possible endobronchial lesion, abnormal CT scan of the thorax. Considered he wanted to put on iron replacement for iron deficiency anemia and plan bronchoscopy. Underwent bronchoscopy on 11/12. No endobronchial lesion identified. Brushings and washings performed and are pending. Findings consistent with chronic bronchitis. The patient was wanting to go home. LABS: On the , white count 12,030, hematocrit is 31 and platelet count 195,000. Electrolytes: Sodium 135, potassium 4.4, chloride 97, BUN 4, creatinine 0.5. So., We will get him ready to go home. DISCHARGE MEDICATIONS: 1. Folic acid 1 mg a day. 2. Icar C 1 twice a day. 3. Prilosec 20 mg a day. 4. Pilar-Colace 2 of them at bedtime. cc: Emre Mann MD
[2018-11-13] MEDS ORDERED: PNEUMOVAX 23 IM ONE (09:29)
== END 2018-11-13 14:29 | disposition home or self-care (01) | DRG 377 ==
LOC: ED 09:10 → EDIPHOLD 11:35 → SUATTDRO 11:35 → ICU 14:51 → 3N 11-07 11:09
PROVIDERS: ATTEND Emergency Medicine

== ENCOUNTER 2019-01-20 20:38 | Inpatient (IN) ==
--- NOTE | 2019-01-20 21:26 | PROVIDER DOCUMENTATION ---
HPI-General Adult - General Chief Complaint: Seizure Stated Complaint: seizure activity Time Seen by Provider: 01/20/19 21:07 Source: patient Allergies/Adverse Reactions: Patient Allergies Allergy/AdvReac Type Severity Reaction Status Date / Time No Known Allergies Allergy Verified 01/20/19 23:14 Home Medications: Home Medication List Medication Instructions Recorded Confirmed Last Taken Type Albuterol Sulfate [Albuterol 8.5 gm INHALATION Q4-6H PRN PRN #1 10/14/18 01/20/19 11/05/18 Rx Sulfate Hfa] hfa.aer.ad 2 puffs Fluticasone/Umeclidin/Vilanter 1 ea INHALATION DAILY #1 blst.w.dev 10/14/18 01/20/19 11/04/18 Rx [Trelegy Ellipta 100-62.5-25] 1 dose Folic Acid 1 mg PO DAILY #30 tab 11/11/18 01/20/19 Unknown Rx Iron Carbonyl/Ascorbic Acid 1 ea PO BID #60 tab 11/11/18 01/20/19 Unknown Rx [Icar-C] Omeprazole [Prilosec] 20 mg PO DAILY@0700 #30 cap 11/11/18 01/20/19 Unknown Rx - History of Present Illness -Gen Adult Nature of Presenting Problems: 63yr old M, hx of alcohol abuse, presenting via EMS for concerns of alcohol withdrawal. The pt's sister apparently found him seizing; last known drink was yesterday. Pt apparently has had withdrawal seizures before, but he claims to not have. When asked if he knows why he is in the hospital, he states that all he remembers was that he was lying in bed, and the next thing he knew, he was in the ED talking to staff. He denies any chest pain. he is alert and oriented to self and place; he has some difficulty recalling the date, and thought for a few moments it was 2014, then 2016, then 2019. Review of Systems - Adult - REVIEW OF SYSTEMS - ADULT Constitutional: reports: no symptoms reported Eyes: reports: no symptoms reported Ears, Nose, Mouth & Throat: reports: no symptoms reported Cardiovascular: reports: no symptoms reported Respiratory: reports: no symptoms reported Gastrointestinal: reports: no symptoms reported Genitourinary: reports: no symptoms reported Musculoskeletal: reports: no symptoms reported Integumentary: reports: no symptoms reported Neurological: reports: see HPI, seizure Psychiatric: reports: see HPI, alcohol/drug dependence Endocrine: reports: no symptoms reported Past History - Adult - PAST MEDICAL HISTORY-ADULT Review of Records: reports: Nursing Assessment Review Major Childhood Illnesses: reports: denies history Cardiovascular: reports: denies history Respiratory: reports: COPD Gastrointestinal: reports: GI bleed Genitourinary: reports: denies history Musculoskeletal: reports: denies history Neurological: reports: denies history Psychiatric: reports: denies history Endocrine/Immune: reports: denies history - PRIOR SURGERIES/PROCEDURES Surgical/Procedure History: reports: colonoscopy - IMMUNIZATION STATUS Childhood Immunizations: See Nurse Assessment Flu Vaccine: See Nurse Assessment - FAMILY HISTORY Family History: reviewed, not pertinent - SOCIAL HISTORY Smoking: greater than 1 pack/day Provider spent 3-5 mins advising pt. on dangers of tobacco.: Discussed manners to quit use, and f/u contacts for add'l counseling. Substance Use: alcohol Alcohol Use Frequency: every day Number of drinks per typical drinking period:: 5-10 drinks Living Situation: family Physical Exam-General - PHYSICAL EXAM-ADULT Initial Vital Signs Reviewed: Yes - CONSTITUTIONAL General Appearance: alert, no apparent distress, thin - EYES Eyes: PERRL/EOMI - HEAD, EARS, NOSE, MOUTH & THROAT HENMT: normocephalic/atraumatic, moist mucous membranes - RESPIRATORY Respiratory: chest non-tender, lungs clear, normal breath sounds - CARDIOVASCULAR Cardiovascular: regular rate, rhythm - GASTROINTESTINAL (ABDOMEN) Abdominal Exam: normal bowel sounds, non tender, soft - NEUROLOGIC Neurologic: no motor/sensory deficits. negative: facial droop - PSYCHIATRIC Psych/Mental Status: normal mood/affect, other (oriented) Progress - PLAN OF CARE/RESULTS Progress/Plan/Lab Results: Vital Signs - 8 hr 01/20/19 20:45 Temperature 97.8 F Pulse Rate 99 H Respiratory Rate 18 Blood Pressure 157/87 O2 Sat by Pulse Oximetry 94 L Pt has Na 121, K 5.3; alcohol level is 0, so will admit for treatment of withdrawals and hyponatremia. Case discussed with Dr. Henderson Result Diagrams: 01/20/19 21:35 01/20/19 21:35 - CONSULTS/PCP/HOSPITALIST Notification #1 *Consult/PCP/Hospitalist*: Dr. Henderson Consult Disposition: Admit Departure - Departure Date of Disposition Decision: 01/20/19 Time of Disposition Decision: 23:49 DIAGNOSIS: Hyponatremia Alcohol withdrawal Qualifiers: Complication of substance-induced condition: uncomplicated Qualified Code(s): F10.230 - Alcohol dependence with withdrawal, uncomplicated Disposition: ADMITTED INPATIENT 09 Certified Medical Emergency: Emergent Condition: Fair Referrals and Follow-Ups: None,PCP [Primary Care Provider] - - Critical Care Note This patient required my direct & personal management of CC.: No Attestation - Physician/ TANNER Attestation Patient care was provided by Advanced Practice Provider:: No The physician spent face to face time with patient:: Yes Advanced Practice Provider documentation review:: Supervising physician onsite and consulted in the evaluation and care of this patient. The physician did have a face to face encounter with the patient.
[2019-01-20 22:06] LABS: BASO# 0.02 X1000 (0.0-0.2); BASO% 0.2 % (0.0-0.8); EOS# 0.07 X1000 (0.0-0.7); EOS% 0.6 % (0.0-10.0); HEMATOCRIT 45.4 % (42.0-52.0); HEMOGLOBIN 14.8 g/dL (14.0-18.0); IMM GRAN# 0.02 X1000 (0.0-0.04); IMM GRAN% 0.2 % (0.0-0.5); LYMPH# 0.75 X1000 (1.2-3.4); LYMPH% 6.8 % (20.5-51.1); MCH 25.3 PG (27-31); MCHC 32.6 g/dL (33-37); MCV 77.7 FL (81-99); MONO# 0.64 X1000 (0.11-0.59); MONO% 5.8 % (1.7-9.3); MPV 9.6 FL (7.4-10.4); NEUT# 9.47 X1000 (1.4-6.5); NEUT% 86.4 % (42.2-75.2); PLT 248 X1000 (130-400); RBC 5.84 XMIL (4.7-6.1); RDW 16.6 % (11.5-14.5); WBC 10.97 X1000 (4.8-10.8)
[2019-01-20 22:29] LABS: AGAP 15; ALB/GLOB RATIO 1.2; ALBUMIN 4.1 g/dL (3.5-5.0); ALKALINE PHOSPHATASE 123 U/L (32-122); BUN 6 mg/dL (8-22); CHLORIDE 77 mmol/L (98-107); COSMO 233; CREATININE 0.7 mg/dL (0.7-1.2); ESTIMATED GFR > 60; GLUCOSE 147 mg/dL (70-104); GOT 24 U/L (10-34); GPT 10 U/L (10-44); POTASSIUM 5.3 mmol/L (3.5-5.1); TCO2 23 mmol/L (25-35); TOTAL BILIRUBIN 0.89 mg/dL (0.20-1.00); TOTAL PROTEIN 7.5 g/dL (6.3-8.3)
[2019-01-20 22:35] LABS: SODIUM 121 mmol/L (136-145)
[2019-01-20 22:38] LABS: URINE SOURCE CLEAN CATCH
[2019-01-20 22:41] LABS: BILIRUBIN URINE NEGATIVE (NEGATIVE); BLOOD URINE NEGATIVE (NEGATIVE); COLOR YELLOW; GLUCOSE URINE NEGATIVE (NEGATIVE); KETONE URINE TRACE mg/dL (NEGATIVE); LEUKOCYTES URINE NEGATIVE (NEGATIVE); NITRITE URINE NEGATIVE (NEGATIVE); PH URINE 6.5; PROTEIN URINE 100 mg/dL (NEGATIVE); SP GRAVITY URINE 1.014; TURBIDITY URINE CLEAR (CLEAR); UR EPITHELIAL CELLS <10 /HPF (<10); URINE BACTERIA NEGATIVE /HPF; URINE RBC <10 /HPF (<10); URINE WBC <10 /HPF (<10); UROBILINOGEN URINE NORMAL (NORMAL)
[2019-01-20] MEDS ORDERED: NS 1,000 ML IV ONE (22:42)
[2019-01-20] MEDS ORDERED: M.V.I.-12 10 ML, FOLIC ACID 1 MG, MAGNESIUM SULFATE 1 GM, THIAMINE 100 MG in NS 1,000 ML IV ONE (22:42)
[2019-01-20 22:56] LABS: UR AMPHETAMINES QUAL NONE DETECTED (NONE DETECT); UR BARBITUATES QUAL NONE DETECTED (NONE DETECT); UR BENZODIAZEPIN QUAL NONE DETECTED (NONE DETECT); UR CANNABINOIDS QUAL NONE DETECTED (NONE DETECT); UR COCAINE QUAL PRESUMPTIVE POSITIVE (NONE DETECT); UR METHADONE QUAL NONE DETECTED (NONE DETECT); UR OPIATES QUAL NONE DETECTED (NONE DETECT); UR OXYCODONE QUAL NONE DETECTED (NONE DETECT); UR PCP QUAL NONE DETECTED (NONE DETECT)
[2019-01-21] MEDS ORDERED: TYLENOL PO PRN (00:28)
[2019-01-21] MEDS ORDERED: ATIVAN IV PRN ×2 (00:28→12:48)
[2019-01-21] MEDS ORDERED: ZOFRAN IV PRN (00:28)
[2019-01-21] MEDS ORDERED: NICODERM PATCH TD ONE (00:28)
[2019-01-21] MEDS: DUONEB (A & A) INH PRN ×3 (00:34→19:17)
[2019-01-21] MEDS: NS 1,000 ML IV SCH ×4 (02:33→14:24)
--- NOTE | 2019-01-21 07:10 | HISTORY AND PHYSICAL ---
PRIMARY CARE PHYSICIAN: None. CHIEF COMPLAINT: Seizure-like activity. HISTORY OF PRESENTING ILLNESS: A 64-year-old male with a history of COPD and chronic alcoholism who had presented to the emergency department with a 1-day history of having seizure-like activity. As per the family, he was shaking, and when he was brought to the emergency department he did not really recollect what exactly had happened. The patient was seen in the ED, and it was suspected he possibly had alcohol withdrawal. Subsequently, he will require admission for further management. At the time of my examination, the patient denied any headache, fever, chills, chest pain, shortness of breath, hemoptysis or any weight changes, but states he feels okay now. PAST MEDICAL HISTORY: Includes COPD, chronic cough, alcoholism. PAST SURGICAL HISTORY: None. ALLERGIES: No known drug allergies. CURRENT MEDICATIONS: None. SOCIAL HISTORY: A 50-pack year history of smoking. Admits to drinking daily, mostly beers. Denies any illicit drug use. FAMILY HISTORY: No history of coronary disease. REVIEW OF SYSTEMS: A 14-point review of system as listed in HPI. Other systems negative. PHYSICAL EXAMINATION: GENERAL: Cooperative, friendly male. He is resting comfortably now. VITAL SIGNS: Temperature 97.8 degrees, pulse 99, respirations 18, blood pressure 157/87. HEENT: Atraumatic, normocephalic. Extraocular movements intact. PERRLA. NECK: Supple. CHEST: Clear to auscultation. CARDIOVASCULAR: Regular rate and rhythm. ABDOMEN: Soft. Positive bowel sounds. EXTREMITIES: No edema. NEUROLOGIC: He is awake, alert, oriented x3. GENITOURINARY: No bladder distention. SKIN: Warm. LABORATORIES AND STUDIES: WBCs 10.97, hemoglobin 14.8, hematocrit 45.4, platelets 248,000. Sodium 121, potassium 5.3, chloride 77, CO2 of 23, BUN is 6, creatinine 0.7, glucose is 147. UA, nitrite negative. ASSESSMENT: A 63-year-old male with a history of chronic obstructive pulmonary disease and chronic alcoholism who had presented to the emergency department with a 1-day history of having seizure-like activity. He was evaluated in the emergency department, and due to suspected alcohol withdrawal, he will require admission for further management. 1. Alcohol withdrawal. 2. Suspected seizure-like activity secondary to alcohol withdrawal. 3. Hyponatremia. 4. Chronic obstructive pulmonary disease. PLAN: 1. We will admit the patient to medical floor with telemetry. 2. We will give the patient a banana bag. 3. Continue with IV fluids. 4. We will use Ativan p.r.n. for alcohol withdrawal. 5. We will put patient on seizure precautions. 6. We will monitor his electrolytes closely. 7. Continue with DuoNeb p.r.n. 8. We will continue to follow and reassess and make further recommendations based on patient's clinical course. 9. Please note that we will use SCDs for DVT prophylaxis. cc: Everett Henderson MD
[2019-01-21 08:43] LABS: BASO# 0.01 X1000 (0.0-0.2); BASO% 0.1 % (0.0-0.8); EOS# 0.01 X1000 (0.0-0.7); EOS% 0.1 % (0.0-10.0); HEMOGLOBIN 13.8 g/dL (14.0-18.0); IMM GRAN# 0.02 X1000 (0.0-0.04); IMM GRAN% 0.2 % (0.0-0.5); LYMPH# 0.87 X1000 (1.2-3.4); MCH 25.3 PG (27-31); MCHC 32.1 g/dL (33-37); MCV 78.8 FL (81-99); MONO# 1.05 X1000 (0.11-0.59); MONO% 8.4 % (1.7-9.3); MPV 9.8 FL (7.4-10.4); NEUT% 84.2 % (42.2-75.2); PLT 239 X1000 (130-400); RBC 5.46 XMIL (4.7-6.1); RDW 16.7 % (11.5-14.5); WBC 12.46 X1000 (4.8-10.8)
[2019-01-21 09:36] LABS: AGAP 13; BUN 6 mg/dL (8-22); CALCIUM 8.2 mg/dL (8.8-10.2); CHLORIDE 88 mmol/L (98-107); COSMO 253; CREATININE 0.6 mg/dL (0.7-1.2); ESTIMATED GFR > 60; GLUCOSE 98 mg/dL (70-104); POTASSIUM 4.2 mmol/L (3.5-5.1); SODIUM 127 mmol/L (136-145); TCO2 26 mmol/L (25-35)
[2019-01-21] MEDS ORDERED: FLU VACCINE IM ONE (10:31)
--- NOTE | 2019-01-21 15:33 | PROGRESS NOTE ---
DATE: 01/21/2019 SUBJECTIVE: Patient reports feeling fine, a little bit anxious. He is having hand tremors but not diabetic. OBJECTIVE: Vital Signs: Temperature 97.5 degrees, heart rate 100, respiratory rate 20, blood pressure 152/85. O2 100% on 2 L nasal cannula. General: This is a 63-year-old male, lying in bed, in no acute distress. Cardiovascular: S1, S2 heard. No murmurs, gallops, or rubs. Regular rate and rhythm. Respiratory: Clear bilaterally to auscultation. No work of breathing or using accessory muscles. Abdomen: Soft, nontender to palpation. Bowel sounds present. Extremities: No clubbing, cyanosis, or edema. Peripheral pulses present in both legs. Neurological: The patient is more awake and alert. Moves 4 extremities spontaneously. LABORATORY DATA: White cell count 12.46, hemoglobin 13.8, hematocrit 43.0, platelets 239,000. Sodium 127, potassium 4.2, and creatinine 0.6. ASSESSMENT: 1. Alcohol withdrawal. 2. Suspected seizure like activity secondary to alcohol withdrawal. 3. Hyponatremia. 4. Chronic obstructive pulmonary disease. PLAN: 1. At this point patient is feeling better. He is more awake in comparing with admission, so we are going to proceed and let him eat. Will provide Ativan p.r.n., and now that he can get medications by mouth, we will start baclofen on this patient. In this case, 20 mg p.o. 3 times per day. 2. We will continue with IV fluids and also breathing treatment with DuoNeb q.4 hours p.r.n. shortness of breath. 3. We will continue to monitor this patient closely. cc: Dave Peterson MD
[2019-01-21] MEDS: LIORESAL PO SCH (16:19)
[2019-01-22] MEDS: NS 1,000 ML IV SCH ×3 (04:59→17:17)
[2019-01-22 07:53] LABS: BASO# 0.02 X1000 (0.0-0.2); BASO% 0.2 % (0.0-0.8); EOS# 0.09 X1000 (0.0-0.7); EOS% 0.9 % (0.0-10.0); HEMATOCRIT 44.3 % (42.0-52.0); HEMOGLOBIN 14.1 g/dL (14.0-18.0); IMM GRAN# 0.02 X1000 (0.0-0.04); IMM GRAN% 0.2 % (0.0-0.5); LYMPH% 10.8 % (20.5-51.1); MCH 25.5 PG (27-31); MCHC 31.8 g/dL (33-37); MCV 80.1 FL (81-99); MONO# 1.12 X1000 (0.11-0.59); MPV 9.6 FL (7.4-10.4); NEUT# 7.86 X1000 (1.4-6.5); NEUT% 76.9 % (42.2-75.2); PLT 213 X1000 (130-400); RBC 5.53 XMIL (4.7-6.1); RDW 16.7 % (11.5-14.5); WBC 10.21 X1000 (4.8-10.8)
[2019-01-22 08:22] LABS: AGAP 11; ALB/GLOB RATIO 1.3; ALBUMIN 3.5 g/dL (3.5-5.0); ALKALINE PHOSPHATASE 92 U/L (32-122); BUN 6 mg/dL (8-22); CALCIUM 8.4 mg/dL (8.8-10.2); CHLORIDE 99 mmol/L (98-107); COSMO 267; CREATININE 0.6 mg/dL (0.7-1.2); ESTIMATED GFR > 60; GLUCOSE 83 mg/dL (70-104); GOT 29 U/L (10-34); GPT 11 U/L (10-44); PHOSPHORUS 2.1 mg/dL (2.7-4.5); POTASSIUM 3.5 mmol/L (3.5-5.1); SODIUM 135 mmol/L (136-145); TCO2 25 mmol/L (25-35); TOTAL BILIRUBIN 0.52 mg/dL (0.20-1.00); TOTAL PROTEIN 6.3 g/dL (6.3-8.3)
[2019-01-22] MEDS: LIORESAL PO SCH ×3 (09:51→17:17)
[2019-01-22] MEDS ORDERED: SODIUM PHOSPHATE 35 MMOL in NS 250 ML IV ONE (11:40)
[2019-01-22] MEDS: DUONEB (A & A) INH PRN (11:51)
[2019-01-22 15:52] VITALS: BP 155/86
--- NOTE | 2019-01-23 14:46 | DISCHARGE SUMMARY ---
ADMISSION DATE: 01/21/2019 DISCHARGE DATE: 01/22/2019 DISCHARGE DIAGNOSES: 1. Alcohol withdrawal, improved. 2. Suspected seizure-like activity secondary to alcohol withdrawal, aware. 3. Hyponatremia, improving. 4. Chronic obstructive pulmonary disease, not in exacerbation. CONSULTATIONS: None. PROCEDURES: None. HOSPITAL COURSE: In brief, this is a 63-year-old, male who was brought to the emergency department complaining of having a seizure-like activity. We suspect alcohol withdrawal. That is the reason why this patient was admitted to the hospital. Initially, he was kind of more sleepy but yesterday, upon my examination, he was doing fine. He was placed on something nonsedating; for him, in this case, was baclofen and he tolerated it very well over the next 24 hours after our first visit. Today, the patient reports feeling fine. Not having any signs of alcohol withdrawal so we will discharge this patient home with baclofen and the patient was encouraged to stop drinking and find a primary care doctor. DISCHARGE PHYSICAL EXAMINATION: Vital Signs: Temperature 97.8 degrees, heart rate 103, respiratory rate 20, blood pressure 155/86, O2 saturation 99% on room air. General Examination: This is a 63-year-old, male, lying in bed, in no acute distress. Cardiovascular Examination: S1 and S2 heard. No murmurs, gallops, or rubs. Regular rate and rhythm. Respiratory Examination: Clear bilaterally to auscultation. No work of breathing or using accessory muscles. Abdomen: Soft, nontender to palpation. Bowel sounds present. No organomegaly. Extremities: No clubbing, cyanosis, or edema. Peripheral pulses present in both legs. Neurological Examination: The patient is alert and oriented x3. Moves 4 extremities. DISCHARGE DISPOSITION: Home to self-care. LIST OF MEDICATIONS: Baclofen 20 mg 1 tablet p.o. 2 times per day for a week. We will continue with the following medications: 1. Breo Ellipta 1 inhalation daily. 2. Albuterol 1 puff every 4 to 6 hours as needed. 3. Folic acid 1 tablet p.o. daily. 4. Icar C 1 tablet p.o. twice daily. 5. Omeprazole 20 mg 1 tablet p.o. daily. cc: Dave Peterson MD
== END 2019-01-22 20:50 | disposition home or self-care (01) | DRG 897 ==
LOC: ED 20:38 → SUATTDRO 01-21 00:09 → EDIPHOLD 01-21 00:09 → 3N 01-21 06:27
PROVIDERS: ATTEND Internal Medicine